=== PATIENT | female | born 1930 | race Caucasian/White ===

== ENCOUNTER 2018-02-20 17:19 | Inpatient (IN) ==
[2018-02-20 18:05] LABS: Basophils # 0.1 K/mm3 (0-0.2); Basophils % 0.7 % (0.1-2.0); Eosinophils # 0.1 K/mm3 (0.0-0.4); Eosinophils % 1.8 % (0.1-12.0); Hematocrit 39.4 % (37.0-47.0); Hemoglobin 12.4 g/dL (12.2-16.2); Lymphocytes # 1.9 K/mm3 (0.7-4.5); Lymphocytes % 30.4 K/mm3 (10-50); Mean Corpuscular HGB Conc 31.4 g/dL (31.8-35.4); Mean Corpuscular Hemoglobin 31.5 pg (27.0-31.2); Mean Corpuscular Volume 100.2 fl (81-99); Mean Platelet Volume 8.2 fl (7.4-10.4); Monocytes # 0.6 K/mm3 (0.1-1.0); Neutrophils # 3.6 K/mm3 (1.8-7.8); Neutrophils % 58.1 % (37.0-80.0); Platelet Count 202 K/mm3 (142-424); Red Blood Count 3.93 M/mm3 (4.20-5.40); Red Cell Distribution Width 15.1 % (11.5-17.5); White Blood Count 6.2 K/mm3 (4.8-10.8)
[2018-02-20 18:26] LABS: Albumin Level 3.4 gm/dL (3.4-5.0); Anion Gap 14.2 mEq/L (5-15); Bilirubin,Total 0.5 mg/dL (0.2-1.0); Calcium 8.5 mg/dL (8.5-10.1); Globulin 3.4 gm/dl (1.3-3.2); Potassium 5.2 mmoL/L (3.5-5.1); Total Protein,Serum 6.8 gm/dL (6.4-8.2)
--- NOTE | 2018-02-20 19:47 | Emergency Department Note ---
ED Disposition Clinical Impression: Dehydration Disposition: Home, Self-Care Condition on Discharge: Fair Instructions: DI for Diarrhea and Traveler's Diarrhea -- Adult, DI for Nausea -- Adult Additional Instructions: Patient has been encouraged to drink lots of fluids and she is able to get a stress will bring to the lab we will give her some containers to take home to collect those 2 specimens with Prescriptions: Ondansetron [Zofran 4mg ODT] 4 mg SL Q6HP PRN 5 Days #20 tab.rapdis PRN Reason: Nausea Referrals: Adrián Patel [Primary Care Provider] - Time of Disposition: 20:30 - Critical Care Critical Care Time: No Attestation: On 02/20/18, the high probability of a clinically significant, sudden or life threatening deterioration of the following system(s) required my full and direct attention, intervention and personal management. The time I documented below is in addition to time spent performing reported procedures but includes the following listed in this critical care notation. Medical Decision Making - Medical Records Medical records reviewed: Yes: I reviewed the patient's medical records. - [place] Inquiry Pt receiving controlled substance: No [place] was queried for this patient: No Vital Signs: 02/20/18 17:32 02/20/18 17:51 02/20/18 17:55 Temperature 97.4 F L Temperature Source Oral Pulse Rate [Right Brachial] 77 73 Respiratory Rate 18 20 Blood Pressure [Right Arm] 162/74 164/74 Blood Pressure Mean [Right Arm] 103 104 Blood Pressure Source [Right Arm] Automatic Cuff Blood Pressure Position [Right Arm] Sitting 02 Sat by Pulse Oximetry 90 L 98 98 Oxygen Delivery Method Room Air Nasal Cannula Nasal Cannula Oxygen Flow Rate (LPM) 2 2 02/20/18 19:20 Temperature Temperature Source Pulse Rate [Right Brachial] 76 Respiratory Rate 18 Blood Pressure [Right Arm] 178/74 Blood Pressure Mean [Right Arm] 108 Blood Pressure Source [Right Arm] Automatic Cuff Blood Pressure Position [Right Arm] Sitting 02 Sat by Pulse Oximetry 100 Oxygen Delivery Method Room Air Oxygen Flow Rate (LPM) - Lab Data Lab results reviewed: Yes: I reviewed the patient's lab results. Lab Results 02/20/18 17:45: WBC 6.2, RBC 3.93 L, Hgb 12.4, Hct 39.4, MCV 100.2 H, MCH 31.5 H , MCHC 31.4 L, RDW 15.1, Plt Count 202, MPV 8.2, Neut % (Auto) 58.1, Lymph % (Auto) 30.4, [place] % (Auto) 9.0, Eos % (Auto) 1.8, Baso % (Auto) 0.7, Neut # (Auto) 3.6, Lymph # (Auto) 1.9, [place] # (Auto) 0.6, Eos # (Auto) 0.1, Baso # (Auto) 0.1 02/20/18 17:45: Sodium 133 L, Potassium 5.2 H, Chloride 101, Carbon Dioxide 23, Anion Gap 14.2, BUN 33 H, Creatinine 1.41 H, Estimated Creat Clear 30, Estimated GFR 35 L, Est GFR ( Amer) 42 L, Glucose 93, Calcium 8.5, Total Bilirubin 0.5, AST 16, ALT 16, Alkaline Phosphatase 82, Total Protein 6.8, Albumin 3.4, Globulin 3.4 H, Albumin/Globulin Ratio 1.0 L Result diagrams: 02/20/18 17:45 02/20/18 17:45 Orders (Tests/Meds): ED MEDICATIONS Discontinued Medications Generic Name Dose Route Start Last Admin Trade Name Freq PRN Reason Stop Dose Admin Sodium Chloride 1,000 mls @ 999 mls/hr 02/20/18 18:00 02/20/18 18:00 Sod Chlor 0.9% 1000ml Bag IV 02/20/18 19:00 999 mls/hr .Q1H1M COMPA Administration ORDERS Category Date Time Status CT abdomen pelvis wo con Stat Cat Scan 02/20/18 19:44 Ordered Chest XR AP view [XR chest AP] Stat Exams 02/20/18 19:46 Ordered Amylase Stat Lab 02/20/18 17:45 Received CRP [C-Reactive Protein] Stat Lab 02/20/18 17:45 Received Diarrhea Panel, PCR Stat Lab 02/20/18 19:46 Ordered Erythrocyte Sedimentation Rate Stat Lab 02/20/18 17:45 Received Lipase Stat Lab 02/20/18 17:45 Received Strep Scrn Group A (Rapid) Stat Lab 02/20/18 19:50 Received UA [Urinalysis and Microscopic] Stat Lab 02/20/18 19:50 Ordered Nausea/Vomiting/Diarrhea HPI - General Chief complaint: Nausea/Vomiting/Diarrhea Stated complaint: Weakness, nauseated Time Seen by Provider: 02/20/18 19:39 Mode of Arrival: Ambulatory Limitations: No Limitations Description of Symptoms (Recalled from ER Triage Doc. by RN): Pt reports nausea and diarrhea x3 days, reports no vomitting. Pt reports generalzied weakness x3 days. - History of Present Illness HPI Narrative: Patient is an 87-year-old white female who was brought to the emergency room with complaints of nausea and diarrhea for approximately 3 days she has not had any vomiting with this and she has not been running any fevers she also complains of a sore throat and some cough is just generally weak. She does have a history of having had C. difficile infection to 3 years ago but has not had any recurrence. At the present time she is taking MiraLAX and Citrucel at night and according to the daughter that makes her have diarrhea stools all the time. MD complaint: nausea, vomiting, diarrhea, abdominal pain Onset (ago): day(s) Description of Vomiting: watery Description of Diarrhea: water Associated Abdominal Pain: No - Related Data Home Medications Medication Instructions Recorded Confirmed albuterol sulfate 90 mcg/actuation 2 puff INHALATION Q4H each 06/22/17 01/28/18 breath activated powder inhaler dexlansoprazole 60 mg 60 mg PO DAILY 06/22/17 01/28/18 capsule,biphase delayed release docusate sodium 250 mg capsule 250 mg PO DAILYP PRN 06/22/17 01/28/18 escitalopram 20 mg tablet 20 mg PO DAILY tab 06/22/17 01/28/18 furosemide 40 mg tablet 40 mg PO .every other day tab 06/22/17 01/28/18 ibuprofen 200 mg tablet 200 mg PO Q6H PRN tab 06/22/17 01/28/18 lisinopril 20 mg tablet 20 mg PO DAILY 06/22/17 01/28/18 loratadine 10 mg tablet 10 mg PO DAILY 06/22/17 01/28/18 lorazepam 1 mg tablet 1 mg PO TID 06/22/17 01/28/18 nitroglycerin 0.4 mg sublingual 0.4 mg SUBLINGUAL Q5M PRN 06/22/17 01/28/18 tablet ondansetron 4 mg disintegrating 4 mg PO Q6H PRN 06/22/17 01/28/18 tablet oxycodone-acetaminophen 7.5 mg-325 1 tab PO Q6H PRN tab 06/22/17 01/28/18 mg tablet sucralfate 1 gram tablet 1 g PO QID 06/22/17 01/28/18 Fluticasone/Vilanterol [Breo 1 each IH DAILY 07/07/17 01/28/18 Ellipta 100-25 Mcg INH] L.acidoph,Paracasei, B.lactis 1 each PO DAILY 07/10/17 01/28/18 [Probiotic] Previous Rx's Medication Instructions Recorded Ondansetron [Zofran 4mg ODT] 4 mg SL Q6HP PRN 5 Days #20 02/20/18 tab.rapdis Allergies Allergy/AdvReac Type Severity Reaction Status Date / Time levofloxacin [From Levaquin] Allergy Intermediate Hallucinati Verified 07/07/17 14:55 ng Tetanus Vaccines and Toxoid Allergy Mild Rash Verified 07/07/17 14:57 cephalexin [From KEFLEX] Allergy Unknown NA-NAUSEA/V Verified 07/06/17 17:40 OMITING ciprofloxacin [From CIPRO] Allergy Unknown NA-NAUSEA/V Verified 07/06/17 17:40 OMITING codeine [CODEINE] Allergy Unknown NA-NAUSEA/V Verified 07/06/17 17:40 OMITING fexofenadine [From TYLER] Allergy Unknown NA-NAUSEA/V Verified 07/06/17 17:40 OMITING morphine [MORPHINE] Allergy Unknown CONFUSION Verified 07/06/17 17:40 Penicillins [PENICILLINS] Allergy Unknown I-HIVES Verified 07/06/17 17:40 promethazine [From PHENERGAN] Allergy Unknown Verified 07/06/17 17:40 Sulfa (Sulfonamide Allergy Unknown NA-NAUSEA/V Verified 07/06/17 17:40 Antibiotics) OMITING [SULFA (SULFONAMIDE ANTIBIOTICS)] [facility] History I have reviewed the patient's past medical history: Yes Medical History: Reports:: Asthma, Atrial Fibrillation, Cancer, Cerebrovascular Accident, Hyperlipidemia, Hypertension, Internal Pacemaker, Myocardial Infarction Denies:: Diabetes Mellitus Type 1, Diabetes Mellitus Type 2 Other Medical History: Reports: Arthritis Laterality Cases: Left: Arthroscopy Shoulder, Bilateral: Arthroscopy Knee Other Surgeries: Yes: Hysterectomy-Partial, Pacemaker, Splenectomy, Other (broken back, cholecystectomy, shoulders) - Social History Smoking Status: Former smoker Alcohol Intake: never - Psychiatric History Expresses thoughts of harming self/others: None Suicide Plan Description: No Plan Family Hx:: Coronary Artery Disease ROS Obtained: Yes All systems reviewed & no additional complaints - Constitutional Constitutional: Reports system reviewed and no additional complaints, except as docu, Reports as per HPI - Cardiovascular Cardiovascular: Reports system reviewed and no additional complaints, except as docu, Reports as per HPI - Gastrointestinal Gastrointestingal: Reports: system reviewed and no additional complaints, except as docu, as per HPI Physical Exam - General General appearance: alert, lethargic - Head Head exam: atraumatic - Eye Eye exam: Present: normal appearance - ENT ENT exam: Present: mucous membranes dry - Neck Neck exam: Present: normal inspection - Chest Chest inspection: Present: normal inspection - Respiratory Respiratory exam: Present: normal lung sounds bilaterally - Cardiovascular Cardiovascular exam: Present: regular rate - Abdominal Exam Abdominal exam: Present: soft, normal bowel sounds - Neurological Exam Neurological exam: Present: alert, oriented X3
[2018-02-20 19:54] LABS: Microscopic, Urine URINE MICROSCOPIC (MICROSCOPIC)
[2018-02-20 20:08] LABS: Appearance,Urine CLEAR (Clear); Bilirubin,Urine Negative (Negative); Blood, Urine 1+ (Negative); Color,Urine STRAW (Yellow); Glucose,Urine (UA) Negative (Negative); Ketones,Urine Negative (Negative); Leukocyte Esterase,Urine Negative (Negative); Protein,Urine Negative (Negative); Specific Gravity, Urine <= 1.005 (1.005-1.030); Urobilinogen,Urine 0.2 EU/dl (0.2)
[2018-02-20 20:40] LABS: ABG Base Excess -6.5 mmol/L (-2.4-2.3); ABG HCO3 18.8 mmhg (22.0-26.0); ABG Oxygen Saturation 96 % (90-100); ABG PCO2 33.7 mmhg (35.0-45.0); ABG PH 7.37 mmol/L (7.35-7.45); ABG PO2 85.3 mmhg (80-100); ABG TCO2 19.9 mmhg (23-27)
[2018-02-20 20:41] LABS: Allen's Test Y; Oxygen 2 %
[2018-02-20 22:56] LABS: Bacteria,Urine Trace /lpf
[2018-02-21 05:23] LABS: Anion Gap 16.4 mEq/L (5-15); Calcium 8.2 mg/dL (8.5-10.1); Potassium 4.4 mmoL/L (3.5-5.1)
[2018-02-21 05:30] LABS: Basophils % 0.5 % (0.1-2.0); Eosinophils # 0.1 K/mm3 (0.0-0.4); Eosinophils % 0.9 % (0.1-12.0); Hematocrit 38.3 % (37.0-47.0); Hemoglobin 11.9 g/dL (12.2-16.2); Lymphocytes # 1.8 K/mm3 (0.7-4.5); Lymphocytes % 22.5 K/mm3 (10-50); Mean Corpuscular Hemoglobin 31.5 pg (27.0-31.2); Mean Corpuscular Volume 101.5 fl (81-99); Mean Platelet Volume 8.2 fl (7.4-10.4); Monocytes # 0.8 K/mm3 (0.1-1.0); Monocytes % 9.8 % (1.7-9.3); Neutrophils # 5.2 K/mm3 (1.8-7.8); Neutrophils % 66.3 % (37.0-80.0); Platelet Count 186 K/mm3 (142-424); Red Blood Count 3.78 M/mm3 (4.20-5.40); Red Cell Distribution Width 15.5 % (11.5-17.5); White Blood Count 7.8 K/mm3 (4.8-10.8)
--- NOTE | 2018-02-21 07:57 | Consult Report ---
*Admission Date: 02/20/18 *Chief complaint: NAUSEA *History of present illness: Patient is an 87 non-Hodgkin's lymphoma and had prior splenectomy. She has a history of coronary disease with previous myocardial infarction, valvular heart disease, pacemaker placement, atrial fibrillation. She does have a previous history of C. difficile colitis several years ago. She has had chronic diarrhea for several years. I had seen her and colonoscopy in September 2015 as well as upper endoscopy which were relatively unremarkable. Apparently she has had more significant diarrhea the past several days. She was brought to the emergency department with nausea and diarrhea. She underwent workup which included CT sc an of the abdomen and pelvis without any contrast whatsoever which revealed findings of possible fluid collection adjacent to the rectosigmoid region possibly consistent with diverticulitis. She was admitted for inpatient management. Patient's main complaint is pain and discomfort between her shou lder blades and in her neck area. Of note, patient has seen gastroenterology as an outpatient as recent as 5 days ago. Exact details of this evaluation are unclear at this time. Review of Systems - Review of Systems Review of systems:: unable to obtain [facility] History Medical History: Reports:: Asthma, Atrial Fibrillation, Cancer (lymphoma), Cerebrovascular Accident, Hyperlipidemia, Hypertension, Internal Pacemaker, Myocardial Infarction Denies:: Diabetes Mellitus Type 1, Diabetes Mellitus Type 2 Other Medical History: Reports: Arthritis Laterality Cases: Left: Arthroscopy Shoulder, Bilateral: Arthroscopy Knee Other Surgeries: Yes: Hysterectomy-Partial, Pacemaker, Splenectomy, Other (broken back, cholecystectomy, shoulders) Amputation: No Fractures: No - *Social History Educational Level: Completed Grade School Smoking Status: Never smoker Alcohol Intake: former Alcohol Intake Frequency:: other Occupational Status: retired - Psychiatric History Expresses thoughts of harming self/others: None Suicide Plan Description: No Plan *Family Hx:: Coronary Artery Disease Meds Home Medications Medication Instructions Recorded Confirmed Type dexlansoprazole 60 mg 60 mg PO DAILY 06/22/17 02/20/18 History capsule,biphase delayed release escitalopram 20 mg tablet 40 mg PO DAILY tab 06/22/17 02/20/18 History furosemide 40 mg tablet 40 mg PO .every other day tab 06/22/17 02/20/18 History lisinopril 20 mg tablet 10 mg PO DAILY 06/22/17 02/20/18 History loratadine 10 mg tablet 10 mg PO DAILY 06/22/17 02/20/18 History lorazepam 1 mg tablet 1 mg PO TID 06/22/17 02/20/18 History nitroglycerin 0.4 mg sublingual 0.4 mg SUBLINGUAL Q5M PRN 06/22/17 02/20/18 History tablet oxycodone-acetaminophen 7.5 mg-325 1 tab PO Q6H PRN tab 06/22/17 02/20/18 History mg tablet sucralfate 1 gram tablet 1 g PO QID 06/22/17 02/20/18 History Allergies Allergy/AdvReac Type Severity Reaction Status Date / Time levofloxacin [From Levaquin] Allergy Intermediate Hallucinati Verified 02/20/18 23:06 ng Tetanus Vaccines and Toxoid Allergy Mild Rash Verified 02/20/18 23:06 cephalexin [From KEFLEX] Allergy Unknown NA-NAUSEA/V Verified 02/20/18 23:06 OMITING ciprofloxacin [From CIPRO] Allergy Unknown NA-NAUSEA/V Verified 02/20/18 23:06 OMITING codeine [CODEINE] Allergy Unknown NA-NAUSEA/V Verified 02/20/18 23:06 OMITING fexofenadine [From TYLER] Allergy Unknown NA-NAUSEA/V Verified 02/20/18 23:06 OMITING morphine [MORPHINE] Allergy Unknown CONFUSION Verified 02/20/18 23:06 Penicillins [PENICILLINS] Allergy Unknown I-HIVES Verified 02/20/18 23:06 promethazine [From PHENERGAN] Allergy Unknown Verified 02/20/18 23:06 Sulfa (Sulfonamide Allergy Unknown NA-NAUSEA/V Verified 02/20/18 23:06 Antibiotics) OMITING [SULFA (SULFONAMIDE ANTIBIOTICS)] Exam Vital signs and Labs for Last 24 Hours: Temp Pulse Resp BP Pulse Ox 97.7 F 86 20 148/83 95 02/21/18 04:02 02/21/18 04:02 02/21/18 04:02 02/21/18 04:02 02/21/18 04:02 Laboratory Results - last 24 hr 02/20/18 17:45: WBC 6.2, RBC 3.93 L, Hgb 12.4, Hct 39.4, MCV 100.2 H, MCH 31.5 H , MCHC 31.4 L, RDW 15.1, Plt Count 202, MPV 8.2, Neut % (Auto) 58.1, Lymph % (Auto) 30.4, [place] % (Auto) 9.0, Eos % (Auto) 1.8, Baso % (Auto) 0.7, Neut # (Auto) 3.6, Lymph # (Auto) 1.9, [place] # (Auto) 0.6, Eos # (Auto) 0.1, Baso # (Auto) 0.1 02/20/18 17:45: Sodium 133 L, Potassium 5.2 H, Chloride 101, Carbon Dioxide 23, Anion Gap 14.2, BUN 33 H, Creatinine 1.41 H, Estimated Creat Clear 30, Estimated GFR 35 L, Est GFR ( Amer) 42 L, Glucose 93, Calcium 8.5, Total Bilirubin 0.5, AST 16, ALT 16, Alkaline Phosphatase 82, Total Protein 6.8, Albumin 3.4, Globulin 3.4 H, Albumin/Globulin Ratio 1.0 L 02/20/18 17:45: C-Reactive Protein 2.0 H, Amylase 39, Lipase 84 02/20/18 17:45: ESR 3 02/20/18 19:50: Urine Color Straw, Urine Appearance Clear, Urine pH 6.0, Ur Specific [place] <= 1.005, Urine Protein Negative, Urine Glucose (UA) Negative, Urine Ketones Negative, Urine Blood 1+, Urine Nitrate Negative, Urine Bilirubin Negative, Urine Urobilinogen 0.2, Ur Leukocyte Esterase Negative, Urine RBC None, Urine WBC None, Ur Squamous Epith Cells None, Urine Bacteria Trace 02/20/18 19:50: Group A Strep Rapid Negative 02/20/18 20:39: Specimen Source R/r, O2 % 2, ABG pH 7.37, ABG pCO2 33.7 L, ABG pO2 85.3, ABG HCO3 18.8 L, ABG Total CO2 19.9 L, ABG O2 Saturation 96, ABG Base Excess -6.5 L, Ramon Test Y 02/20/18 21:35: Lactate 1.7 02/21/18 01:45: Troponin I 0.06 02/21/18 04:53: Troponin I 0.05 02/21/18 04:53: WBC 7.8 D, RBC 3.78 L, Hgb 11.9 L, Hct 38.3, MCV 101.5 H, MCH 31.5 H, MCHC 31.0 L, RDW 15.5, Plt Count 186, MPV 8.2, Neut % (Auto) 66.3, Lymph % (Auto) 22.5, [place] % (Auto) 9.8 H, Eos % (Auto) 0.9, Baso % (Auto) 0.5, Neut # (Auto) 5.2, Lymph # (Auto) 1.8, [place] # (Auto) 0.8, Eos # (Auto) 0.1, Baso # (Auto) 0.0 02/21/18 04:53: Sodium 141, Potassium 4.4, Chloride 104, Carbon Dioxide 25, Anion Gap 16.4 H, BUN 30 H, Creatinine 1.17 H, Estimated Creat Clear 37, Estim ated GFR 44 L, Est GFR ( Amer) 53 L D, Glucose 86, Calcium 8.2 L I & O for Last 24 hours: Intake & Output 02/18/18 02/19/18 02/20/18 02/21/18 11:59 11:59 11:59 11:59 Intake Total 1725 / 1725 Output Total 1000 / 1000 Balance 725 / 725 Weight 160 lb 1 oz - Constitutional no acute distress - *Routine HEENT Exam Head: Present: normocephalic - *Routine Neck Exam Present: supple - *Routine Respiratory Exam Present: CTA bilaterally - *Routine Cardiovascular Exam Present: Normal S1, Normal S2 - *Routine Abdominal Exam Present: soft Comments: Her abdomen is soft. There is no appreciable tenderness. She has some mild subjective tenderness. Results - Labs 02/21/18 04:53 02/21/18 04:53 Laboratory Results - last 24 hr 02/20/18 17:45: WBC 6.2, RBC 3.93 L, Hgb 12.4, Hct 39.4, MCV 100.2 H, MCH 31.5 H , MCHC 31.4 L, RDW 15.1, Plt Count 202, MPV 8.2, Neut % (Auto) 58.1, Lymph % (Auto) 30.4, [place] % (Auto) 9.0, Eos % (Auto) 1.8, Baso % (Auto) 0.7, Neut # (Auto) 3.6, Lymph # (Auto) 1.9, [place] # (Auto) 0.6, Eos # (Auto) 0.1, Baso # (Auto) 0.1 02/20/18 17:45: Sodium 133 L, Potassium 5.2 H, Chloride 101, Carbon Dioxide 23, Anion Gap 14.2, BUN 33 H, Creatinine 1.41 H, Estimated Creat Clear 30, Estimated GFR 35 L, Est GFR ( Amer) 42 L, Glucose 93, Calcium 8.5, Total Bilirubin 0.5, AST 16, ALT 16, Alkaline Phosphatase 82, Total Protein 6.8, Albumin 3.4, Globulin 3.4 H, Albumin/Globulin Ratio 1.0 L 02/20/18 17:45: C-Reactive Protein 2.0 H, Amylase 39, Lipase 84 02/20/18 17:45: ESR 3 02/20/18 19:50: Urine Color Straw, Urine Appearance Clear, Urine pH 6.0, Ur Specific [place] <= 1.005, Urine Protein Negative, Urine Glucose (UA) Negative, Urine Ketones Negative, Urine Blood 1+, Urine Nitrate Negative, Urine Bilirubin Negative, Urine Urobilinogen 0.2, Ur Leukocyte Esterase Negative, Urine RBC None, Urine WBC None, Ur Squamous Epith Cells None, Urine Bacteria Trace 02/20/18 19:50: Group A Strep Rapid Negative 02/20/18 20:39: Specimen Source R/r, O2 % 2, ABG pH 7.37, ABG pCO2 33.7 L, ABG pO2 85.3, ABG HCO3 18.8 L, ABG Total CO2 19.9 L, ABG O2 Saturation 96, ABG Base Excess -6.5 L, Ramon Test Y 02/20/18 21:35: Lactate 1.7 02/21/18 01:45: Troponin I 0.06 02/21/18 04:53: Troponin I 0.05 02/21/18 04:53: WBC 7.8 D, RBC 3.78 L, Hgb 11.9 L, Hct 38.3, MCV 101.5 H, MCH 31.5 H, MCHC 31.0 L, RDW 15.5, Plt Count 186, MPV 8.2, Neut % (Auto) 66.3, Lymph % (Auto) 22.5, [place] % (Auto) 9.8 H, Eos % (Auto) 0.9, Baso % (Auto) 0.5, Neut # (Auto) 5.2, Lymph # (Auto) 1.8, [place] # (Auto) 0.8, Eos # (Auto) 0.1, Baso # (Auto) 0.0 02/21/18 04:53: Sodium 141, Potassium 4.4, Chloride 104, Carbon Dioxide 25, Anion Gap 16.4 H, BUN 30 H, Creatinine 1.17 H, Estimated Creat Clear 37, Estimated GFR 44 L, Est GFR ( Amer) 53 L D, Glucose 86, Calcium 8.2 L Assessment and Plan - Assessment and plan all Dx Assessment and Plan for all problems:: No surgical intervention at this time. Continue antibiotics for now. I will go ahead and start a diet.
--- NOTE | 2018-02-21 08:04 | History & Physical Report ---
*Admission Date: 02/20/18 *Chief complaint: Diarrhea *History of present illness: 87-year-old female brought to the emergency department yesterday evening by family due to nausea and diarrhea. According to the ER notes symptoms had been present for about 3 days and patient does confirm this. Patient takes multiple laxatives. She sees local GI and had seen him as recently as February 15. Workup in the emergency department with significant only for right-sided rectosigmoid diverticulitis with possible abscess per [facility] report. Patient's white count was normal. She denies fevers or chills. She has been having nausea and diarrhea and after admission developed vomiting. This morning patient's primary complaint is multiple arthralgias. She is a very poor historian and apparently her daughter provided most of the history in the emergency department. [facility] History I have reviewed the patient's past medical history: Yes Medical History: Reports:: Asthma, Atrial Fibrillation, Cancer (lymphoma), Cerebrovascular Accident, Hyperlipidemia, Hypertension, Internal Pacemaker, Myocardial Infarction Denies:: Diabetes Mellitus Type 1, Diabetes Mellitus Type 2 Other Medical History: Reports: Arthritis Laterality Cases: Left: Arthroscopy Shoulder, Bilateral: Arthroscopy Knee Other Surgeries: Yes: Hysterectomy-Partial, Pacemaker, Splenectomy, Other (broken back, cholecystectomy, shoulders) Amputation: No Fractures: No - *Social History Educational Level: Completed Grade School Smoking Status: Never smoker Alcohol Intake: former Alcohol Intake Frequency:: other Occupational Status: retired - Psychiatric History Expresses thoughts of harming self/others: None Suicide Plan Description: No Plan *Family Hx:: Coronary Artery Disease Review of Systems - Constitutional Reports lack of energy, Denies night sweats - Eyes Reports loss of vision - ENT Reports abnormal hearing - *Cardiovascular Denies chest pain, Denies chest pain at rest - *Respiratory Denies cough, Denies shortness of breath - *Gastrointestinal Reports abdominal pain - *Musculoskeletal Reports joint pain Meds Home Medications Medication Instructions Recorded Confirmed Type dexlansoprazole 60 mg 60 mg PO DAILY 06/22/17 02/20/18 History capsule,biphase delayed release escitalopram 20 mg tablet 40 mg PO DAILY tab 06/22/17 02/20/18 History furosemide 40 mg tablet 40 mg PO .every other day tab 06/22/17 02/20/18 History lisinopril 20 mg tablet 10 mg PO DAILY 06/22/17 02/20/18 History loratadine 10 mg tablet 10 mg PO DAILY 06/22/17 02/20/18 History lorazepam 1 mg tablet 1 mg PO TID 06/22/17 02/20/18 History nitroglycerin 0.4 mg sublingual 0.4 mg SUBLINGUAL Q5M PRN 06/22/17 02/20/18 History tablet oxycodone-acetaminophen 7.5 mg-325 1 tab PO Q6H PRN tab 06/22/17 02/20/18 History mg tablet sucralfate 1 gram tablet 1 g PO QID 06/22/17 02/20/18 History Allergies Allergy/AdvReac Type Severity Reaction Status Date / Time levofloxacin [From Levaquin] Allergy Intermediate Hallucinati Verified 02/20/18 23:06 ng Tetanus Vaccines and Toxoid Allergy Mild Rash Verified 02/20/18 23:06 cephalexin [From KEFLEX] Allergy Unknown NA-NAUSEA/V Verified 02/20/18 23:06 OMITING ciprofloxacin [From CIPRO] Allergy Unknown NA-NAUSEA/V Verified 02/20/18 23:06 OMITING codeine [CODEINE] Allergy Unknown NA-NAUSEA/V Verified 02/20/18 23:06 OMITING fexofenadine [From TYLER] Allergy Unknown NA-NAUSEA/V Verified 02/20/18 23:06 OMITING morphine [MORPHINE] Allergy Unknown CONFUSION Verified 02/20/18 23:06 Penicillins [PENICILLINS] Allergy Unknown I-HIVES Verified 02/20/18 23:06 promethazine [From PHENERGAN] Allergy Unknown Verified 02/20/18 23:06 Sulfa (Sulfonamide Allergy Unknown NA-NAUSEA/V Verified 02/20/18 23:06 Antibiotics) OMITING [SULFA (SULFONAMIDE ANTIBIOTICS)] Exam Vital signs and Labs for Last 24 Hours: Temp Pulse Resp BP Pulse Ox 97.7 F 86 20 148/83 95 02/21/18 04:02 02/21/18 04:02 02/21/18 04:02 02/21/18 04:02 02/21/18 04:02 Laboratory Results - last 24 hr 02/20/18 17:45: WBC 6.2, RBC 3.93 L, Hgb 12.4, Hct 39.4, MCV 100.2 H, MCH 31.5 H , MCHC 31.4 L, RDW 15.1, Plt Count 202, MPV 8.2, Neut % (Auto) 58.1, Lymph % (Auto) 30.4, [place] % (Auto) 9.0, Eos % (Auto) 1.8, Baso % (Auto) 0.7, Neut # (Auto) 3.6, Lymph # (Auto) 1.9, [place] # (Auto) 0.6, Eos # (Auto) 0.1, Baso # (Auto) 0.1 02/20/18 17:45: Sodium 133 L, Potassium 5.2 H, Chloride 101, Carbon Dioxide 23, Anion Gap 14.2, BUN 33 H, Creatinine 1.41 H, Estimated Creat Clear 30, Estimated GFR 35 L, Est GFR ( Amer) 42 L, Glucose 93, Calcium 8.5, Total Bilirubin 0.5, AST 16, ALT 16, Alkaline Phosphatase 82, Total Protein 6.8, Albumin 3.4, Globulin 3.4 H, Albumin/Globulin Ratio 1.0 L 02/20/18 17:45: C-Reactive Protein 2.0 H, Amylase 39, Lipase 84 02/20/18 17:45: ESR 3 02/20/18 19:50: Urine Color Straw, Urine Appearance Clear, Urine pH 6.0, Ur Specific [place] <= 1.005, Urine Protein Negative, Urine Glucose (UA) Negative, Urine Ketones Negative, Urine Blood 1+, Urine Nitrate Negative, Urine Bilirubin Negative, Urine Urobilinogen 0.2, Ur Leukocyte Esterase Negative, Urine RBC None, Urine WBC None, Ur Squamous Epith Cells None, Urine Bacteria Trace 02/20/18 19:50: Group A Strep Rapid Negative 02/20/18 20:39: Specimen Source R/r, O2 % 2, ABG pH 7.37, ABG pCO2 33.7 L, ABG pO2 85.3, ABG HCO3 18.8 L, ABG Total CO2 19.9 L, ABG O2 Saturation 96, ABG Base Excess -6.5 L, Ramon Test Y 02/20/18 21:35: Lactate 1.7 02/21/18 01:45: Troponin I 0.06 02/21/18 04:53: Troponin I 0.05 02/21/18 04:53: WBC 7.8 D, RBC 3.78 L, Hgb 11.9 L, Hct 38.3, MCV 101.5 H, MCH 31.5 H, MCHC 31.0 L, RDW 15.5, Plt Count 186, MPV 8.2, Neut % (Auto) 66.3, Lymph % (Auto) 22.5, [place] % (Auto) 9.8 H, Eos % (Auto) 0.9, Baso % (Auto) 0.5, Neut # (Auto) 5.2, Lymph # (Auto) 1.8, [place] # (Auto) 0.8, Eos # (Auto) 0.1, Baso # (Auto) 0.0 02/21/18 04:53: Sodium 141, Potassium 4.4, Chloride 104, Carbon Dioxide 25, Anion Gap 16.4 H, BUN 30 H, Creatinine 1.17 H, Estimated Creat Clear 37, Estimated GFR 44 L, Est GFR ( Amer) 53 L D, Glucose 86, Calcium 8.2 L I & O for Last 24 hours: Intake & Output 02/18/18 02/19/18 02/20/18 02/21/18 11:59 11:59 11:59 11:59 Intake Total 1725 / 1725 Output Total 1000 / 1000 Balance 725 / 725 Weight 160 lb 1 oz Narrative: Patient is sitting up on the side of the bed. ENT exam is grossly normal. Neck is without lymphadenopathy. Lungs are clear to auscultation. Heart has a regular rate and rhythm. Abdomen is soft with right lower quadrant tenderness with deep palpation. There is no rebound or guarding. Bowel sounds are present. Extremities are warm to the touch and there is trace pedal edema. Assessment and Plan (1) Diverticulitis Current visit: Yes Status: Acute Category: Medical Code(s): K57.92 - Diverticulitis of intestine, part unspecified, without perforation or abscess without bleeding - Assessment and plan all Dx Assessment and Plan for all problems:: 1. Change antibiotics to Invanz due to Levaquin allergy 2. Start patient on home medications including Percocet for pain 3. Monitor symptomatology over the next 24 hours. 4. Surgical consult, Dr. Miranda is familiar with the patient and performed colonoscopy approximately 2 years ago. Await official CT scan report
--- NOTE | 2018-02-21 10:42 | Pharmacy Consult Notes ---
[facility] Pharmacy VTE Monitoring - Patient Demographics Admission date: 02/20/18 Report Date: 02/21/18 Time: 10:41 Allergies/Adverse Reactions: Patient Allergies levofloxacin [From Levaquin] Allergy (Intermediate, Verified 02/20/18 23:06) Hallucinating Tetanus Vaccines and Toxoid Allergy (Mild, Verified 02/20/18 23:06) Rash cephalexin [From KEFLEX] Allergy (Unknown, Verified 02/20/18 23:06) NA-NAUSEA/VOMITING ciprofloxacin [From CIPRO] Allergy (Unknown, Verified 02/20/18 23:06) NA-NAUSEA/VOMITING codeine [CODEINE] Allergy (Unknown, Verified 02/20/18 23:06) NA-NAUSEA/VOMITING fexofenadine [From TYLER] Allergy (Unknown, Verified 02/20/18 23:06) NA-NAUSEA/VOMITING morphine [MORPHINE] Allergy (Unknown, Verified 02/20/18 23:06) CONFUSION Penicillins [PENICILLINS] Allergy (Unknown, Verified 02/20/18 23:06) I-HIVES promethazine [From PHENERGAN] Allergy (Unknown, Verified 02/20/18 23:06) Sulfa (Sulfonamide Antibiotics) [SULFA (SULFONAMIDE ANTIBIOTICS)] Allergy (Unknown, Verified 02/20/18 23:06) NA-NAUSEA/VOMITING Height: 1.61 m Weight: 72.603 kg Patient Problems: Current Active Problems Dehydration (Acute) Diverticulitis (Acute) - VTE Risk Labs: VTE Related Lab Results Hgb 11.9 g/dL (12.2-16.2) L 02/21/18 04:53 Hct 38.3 % (37.0-47.0) 02/21/18 04:53 Plt Count 186 K/mm3 (142-424) 02/21/18 04:53 BUN 30 mg/dL (7-18) H 02/21/18 04:53 Creatinine 1.17 mg/dL (0.55-1.02) H 02/21/18 04:53 Estimated Creat Clear 37 mL/min (0-300) 02/21/18 04:53 VTE Score: 6 VTE Risk Level: Moderate Risk - Prophylaxis VTE Prophylaxis Ordered?: Yes Types of VTE Prophylaxis: TEDS Knee High Location of Applied Device: Bilateral Lower Extremeties - VTE Diagnosis Confirmed Treatment or plan recommended: Continue Current Treatment
--- NOTE | 2018-02-22 08:00 | Progress Note ---
Subjective Narrative: Patient's only complaint is some nausea. Denies abdominal pain. Exam Vital signs and Labs for Last 24 Hours: Temp Pulse Resp BP Pulse Ox 98.0 F 80 18 184/73 98 02/22/18 03:37 02/22/18 04:00 02/22/18 03:37 02/22/18 03:37 02/22/18 03:37 I & O for Last 24 hours: Intake & Output 02/19/18 02/20/18 02/21/18 02/22/18 11:59 11:59 11:59 11:59 Intake Total 1725 / 1725 3459 / 3459 Output Total 1600 / 1600 3150 / 3150 Balance 125 / 125 309 / 309 Weight 160 lb 1 oz 164 lb 1 oz Microbiology Reports for the Last 24 Hours: Microbiology 02/20/18 19:50 Throat Group A Streptococcus Screen (RYAN) - Final Negative for Group A Streptococcus. 02/20/18 21:33 Blood Blood Culture - Preliminary 02/20/18 21:33 Blood Blood Culture - Preliminary - *Routine Abdominal Exam Present: soft. Absent: tenderness Progress Note: A&P (1) Diverticulitis Status: Acute Current Visit: Yes Assessment and Plan for All Diagnoses:: No additional surgical relations at this time.
--- NOTE | 2018-02-22 08:07 | Progress Note ---
Internal Medicine - PN: Subj *Date: 02/22/18 *Time: 08:05 Interval history: Patient felt fairly well overnight except some mild nausea. Was able to tolerate gastelum and toast for breakfast this morning without vomiting. She has had no fever. Exam Vital signs and Labs for Last 24 Hours: Temp Pulse Resp BP Pulse Ox 98.0 F 80 18 184/73 98 02/22/18 03:37 02/22/18 04:00 02/22/18 03:37 02/22/18 03:37 02/22/18 03:37 I & O for Last 24 hours: Intake & Output 02/19/18 02/20/18 02/21/18 02/22/18 11:59 11:59 11:59 11:59 Intake Total 1725 / 1725 3459 / 3459 Output Total 1600 / 1600 3150 / 3150 Balance 125 / 125 309 / 309 Weight 160 lb 1 oz 164 lb 1 oz Microbiology Reports for the Last 24 Hours: Microbiology 02/20/18 21:33 Blood Blood Culture - Preliminary 02/20/18 21:33 Blood Blood Culture - Preliminary 02/20/18 19:50 Throat Group A Streptococcus Screen (RYAN) - Final Negative for Group A Streptococcus. Narrative: Patient is alert. Pleasant. No JVD. ENT exam otherwise clear. Anterior lung samuel clear. Heart rate regular. Abdomen soft and nontender. Vigorous palpation causes minimal tenderness in the left lower quadrant but very minimal. No CVA pain. No peripheral edema. Assessment and Plan (1) Diverticulitis Current visit: Yes Status: Acute Category: Medical Code(s): K57.92 - Diverticulitis of intestine, part unspecified, without perforation or abscess without bleeding - Assessment and plan all Dx Assessment and Plan for all problems:: Overall patient seems to be clinically improving. White count improving. Exam improving. Continue antibiotics for another 24 hours. Increase lisinopril because of high blood pressure in hospital, of note creatinine improved yesterday. Check labs tomorrow..
[2018-02-23 06:45] LABS: Basophils # 0.1 K/mm3 (0-0.2); Basophils % 0.9 % (0.1-2.0); Eosinophils # 0.1 K/mm3 (0.0-0.4); Hematocrit 37.4 % (37.0-47.0); Hemoglobin 11.7 g/dL (12.2-16.2); Lymphocytes # 2.3 K/mm3 (0.7-4.5); Lymphocytes % 33.2 K/mm3 (10-50); Mean Corpuscular HGB Conc 31.4 g/dL (31.8-35.4); Mean Corpuscular Hemoglobin 31.6 pg (27.0-31.2); Mean Corpuscular Volume 100.8 fl (81-99); Mean Platelet Volume 8.3 fl (7.4-10.4); Monocytes # 0.8 K/mm3 (0.1-1.0); Monocytes % 12.3 % (1.7-9.3); Neutrophils # 3.5 K/mm3 (1.8-7.8); Neutrophils % 51.6 % (37.0-80.0); Platelet Count 201 K/mm3 (142-424); Red Blood Count 3.71 M/mm3 (4.20-5.40); Red Cell Distribution Width 16.2 % (11.5-17.5); White Blood Count 6.8 K/mm3 (4.8-10.8)
[2018-02-23 06:57] LABS: Anion Gap 11.6 mEq/L (5-15); Bilirubin,Total 0.7 mg/dL (0.2-1.0); Globulin 2.9 gm/dl (1.3-3.2); Potassium 3.6 mmoL/L (3.5-5.1); Total Protein,Serum 5.9 gm/dL (6.4-8.2)
--- NOTE | 2018-02-23 06:58 | Progress Note ---
Subjective Patient reports: feels better Narrative: Patient states that she feels better. Exam Vital signs and Labs for Last 24 Hours: Temp Pulse Resp BP Pulse Ox 98.5 F 70 17 172/83 94 L 02/23/18 03:51 02/23/18 04:00 02/23/18 03:51 02/23/18 03:51 02/23/18 03:51 Laboratory Results - last 24 hr 02/23/18 06:23: WBC 6.8, RBC 3.71 L, Hgb 11.7 L, Hct 37.4, MCV 100.8 H, MCH 31.6 H, MCHC 31.4 L, RDW 16.2, Plt Count 201, MPV 8.3, Neut % (Auto) 51.6, Lymph % (Auto) 33.2, [place] % (Auto) 12.3 H, Eos % (Auto) 2.0, Baso % (Auto) 0.9, Neut # (Auto) 3.5, Lymph # (Auto) 2.3, [place] # (Auto) 0.8, Eos # (Auto) 0.1, Baso # (Auto) 0.1 I & O for Last 24 hours: Intake & Output 02/20/18 02/21/18 02/22/18 02/23/18 11:59 11:59 11:59 11:59 Intake Total 1725 / 1725 3559 / 3559 2714 / 2714 Output Total 1600 / 1600 3150 / 3150 900 / 900 Balance 125 / 125 409 / 409 1814 / 1814 Weight 160 lb 1 oz 164 lb 1 oz 168 lb 2 oz Microbiology Reports for the Last 24 Hours: Microbiology 02/20/18 21:33 Blood Blood Culture - Preliminary 02/20/18 21:33 Blood Blood Culture - Preliminary 02/20/18 19:50 Throat Group A Streptococcus Screen (RYAN) - Final Negative for Group A Streptococcus. - *Routine Abdominal Exam Present: soft Comments: Min subjective tenderness right lower abdomen without guarding or rebound. Progress Note: A&P (1) Diverticulitis Status: Acute Current Visit: Yes Assessment and Plan for All Diagnoses:: Possible discharge today.
--- NOTE | 2018-02-23 09:56 | Swing Bed Reports ---
Discharge/Transfer - Discharge Disposition: [facility] Swing Bed Condition: Good - Plan of Care Resident has been informed of condition and prognosis?: Yes Mobility Status: ambulatory with assistance Goal of treatment:: complete IV abx due to allergies adn inability to take PO Rehab Potential: Good I concur with the most recent H & P: Yes Date of most recent H & P: 02/21/18 Certification: I have reviewed and agree with this resident's plan of care. I certify that post-hospital penitentiary facility services are required to be given on an inpatient basis because of the need for penitentiary care on a continuing basis for the condition(s) for which he/she is receiving inpatient hospital ser vices prior to admission to swing bed. I also certify that the resident meets existing SNF level of care definition.
--- NOTE | 2018-02-23 10:03 | Swing Bed Reports ---
*Admission Date: 02/20/18 *Chief complaint: Acute abdomen, positive blood cultures *History of present illness: Patient is an 87 non-Hodgkin's lymphoma and had prior splenectomy. She has a history of coronary disease with previous myocardial infarction, valvular heart disease, pacemaker placement, atrial fibrillation. She does have a previous history of C. difficile colitis several years ago. She has had chronic diarrhea for several years. I had seen her and colonoscopy in September 2015 as well as upper endoscopy which were relatively unremarkable. Apparently she has had more significant diarrhea the past several days. She was brought to the emergency department with nausea and diarrhea. She underwent workup which included CT scan of the abdomen and pelvis without any contrast whatsoever which revealed findings of possible fluid collection adjacent to the rectosigmoid region possibly consistent with diverticulitis. She was admitted for inpatient management. Patient's main complaint is pain and discomfort between her shoulder blades and in her neck area. Of note, patient has seen gastroe nterology as an outpatient as recent as 5 days ago. Exact details of this evaluation are unclear at this time. Hospital Course Hospital Course: Ms. Patel was admitted with acute abdominal pain, nausea. Assessed by surgery after CT scan of abdomen showed concern for possible diverticulitis versus small peripheral with walled off collection. Responded well to antibiotics with ertapenem and Flagyl. Surgery felt patient's abdomen did not require surgical intervention, recommended continuing medical management. Patient's symptoms significantly improved over the duration of her hospitalization. Found to have blood cultures for Streptococcus. Repeat blood cultures pending. Due to patient's numerous antibiotic allergies, unable to transition to oral therapy for duration of treatment. Plan to transfer and hemodynamically stable status to swing bed for completion of antibiotics for acute abdomen and positive blood culture treatment. Exam Vital signs and Labs for Last 24 Hours: Temp Pulse Resp BP Pulse Ox 98.3 F 84 16 180/90 93 L 02/23/18 07:43 02/23/18 07:43 02/23/18 07:43 02/23/18 07:43 02/23/18 07:43 Laboratory Results - last 24 hr 02/23/18 06:23: WBC 6.8, RBC 3.71 L, Hgb 11.7 L, Hct 37.4, MCV 100.8 H, MCH 31.6 H, MCHC 31.4 L, RDW 16.2, Plt Count 201, MPV 8.3, Neut % (Auto) 51.6, Lymph % (Auto) 33.2, [place] % (Auto) 12.3 H, Eos % (Auto) 2.0, Baso % (Auto) 0.9, Neut # (Auto) 3.5, Lymph # (Auto) 2.3, [place] # (Auto) 0.8, Eos # (Auto) 0.1, Baso # (Auto) 0.1 02/23/18 06:23: Sodium 141, Potassium 3.6, Chloride 107, Carbon Dioxide 26, Anion Gap 11.6, BUN 16 D, Creatinine 0.89 D, Estimated Creat Clear 46, Estimated GFR 60, Est GFR ( Amer) 72 D, Glucose 101, Calcium 8.0 L, Total Bilirubin 0.7, AST 17, ALT 14, Alkaline Phosphatase 70, Total Protein 5.9 L, Albumin 3.0 L, Globulin 2.9, Albumin/Globulin Ratio 1.0 L I & O for Last 24 hours: Intake & Output 02/20/18 02/21/18 02/22/18 02/23/18 23:59 23:59 23:59 23:59 Intake Total 1100 / 1100 1930 / 1930 3932 / 3932 1396 / 1396 Output Total 4450 / 4450 900 / 900 701 / 701 Balance 1100 / 1100 -2520 / -2520 3032 / 3032 695 / 695 Weight 72.773 kg 72.603 kg 74.417 kg 76.26 kg Microbiology Reports for the Last 24 Hours: Microbiology 02/20/18 21:33 Blood Blood Culture - Preliminary Gram Positive Cocci Gram Positive Bacilli 02/20/18 21:33 Blood Blood Culture - Preliminary Gram Positive Cocci Gram Positive Bacilli 02/20/18 19:50 Throat Group A Streptococcus Screen (RYAN) - Final Negative for Group A Streptococcus. - *Routine HEENT Exam Head: Present: normocephalic, atraumatic Eye: Present: EOMI, PERRL ENT: Present: mucous membranes moist - *Routine Neck Exam Present: supple. Absent: lymphadenopathy, thyromegaly - *Routine Respiratory Exam Present: CTA bilaterally. Absent: prolonged expiratory phase, wheezes, crackles - *Routine Cardiovascular Exam Present: RRR, Normal S1. Absent: murmur - *Routine Abdominal Exam Present: soft, normoactive bowel sounds, tenderness (Tenderness with interval improvement) - *Routine Rectal Exam Patient deferred: visual exam - *Routine Exam Patient deferred: external exam - *Routine Extremities Exam Absent: cyanosis, clubbing, edema - *Routine Skin Exam Present: intact. Absent: cyanosis - *Routine Neurological Exam Present: alert Results Labs on day of discharge: Labs from last 24 hours 02/23/18 02/23/18 06:23 06:23 WBC 6.8 RBC 3.71 L Hgb 11.7 L Hct 37.4 MCV 100.8 H MCH 31.6 H MCHC 31.4 L RDW 16.2 Plt Count 201 MPV 8.3 Neut % (Auto) 51.6 Lymph % (Auto) 33.2 [place] % (Auto) 12.3 H Eos % (Auto) 2.0 Baso % (Auto) 0.9 Neut # (Auto) 3.5 Lymph # (Auto) 2.3 [place] # (Auto) 0.8 Eos # (Auto) 0.1 Baso # (Auto) 0.1 Sodium 141 Potassium 3.6 Chloride 107 Carbon Dioxide 26 Anion Gap 11.6 BUN 16 D Creatinine 0.89 D Estimated Creat Clear 46 Estimated GFR 60 Est GFR ( Amer) 72 D Glucose 101 Calcium 8.0 L Total Bilirubin 0.7 AST 17 ALT 14 Alkaline Phosphatase 70 Total Protein 5.9 L Albumin 3.0 L Globulin 2.9 Albumin/Globulin Ratio 1.0 L Preliminary micro results at discharge 02/20/18 21:33 Blood Culture - Preliminary Blood Gram Positive Cocci Gram Positive Bacilli 02/20/18 21:33 Blood Culture - Preliminary Blood Gram Positive Cocci Gram Positive Bacilli DS: Diagnosis - Discharge Diagnosis (1) Diverticulitis Status: Acute Problem details: Intervally improved during admission. Continue antibiotics. Due to antibiotic allergies need to continue IV ertapenem. Transition to oral Flagyl. Unable to tolerate transition to Levaquin due to allergy. Continue course of treatment for 7-10 days from initiation of an tibiotics. transitioned to swing for completion of treatment. (2) Bacteremia Status: Acute Problem details: Patient found to have positive blood cultures for Streptococcus species obtained on admission. 4 of 4 bottles positive. Patient was not meeting sepsis criteria on admission. Has improved through course of treatment with ertapenem and Flagyl without specific strep treatment. Speciation and sensitivities pending. Repeat blood cultures performed today. Discharge/Transfer (Swing Bed) - Plan of Care Resident has been informed of condition and prognosis?: Yes Mobility Status: ambulatory with assistance Goal of treatment:: complete IV abx due to allergies adn inability to take PO Rehab Potential: Good I concur with the most recent H&P: Yes Date of most recent H&P: 02/21/18 Certification: I have reviewed and agree with this resident's plan of care. I certify that post-hospital longterm facility services are required to be given on an inpatient basis because of the need for longterm care on a continuing basis for the condition(s) for which he/she is receiving inpatient hospital services prior to admission to swing bed. I also certify that the resident meets existing SNF level of care definition. - Discharge from Acute Disposition: [facility] Condition: Good Current Home Med List: Home Medications Medication Instructions Recorded Confirmed Type Bisoprolol Fumarate [Bisoprolol 5 mg PO DAILY 02/21/18 02/21/18 History 5mg Tablet] Diclofenac Sodium [Diclofenac Sod 1 applicatio TP DIRECTED 02/21/18 02/21/18 History 100gm Topical Gel] Lisinopril [Lisinopril 5mg Tablet] 5 mg PO DAILY 02/21/18 02/21/18 History Polyethylene Glycol 3350 [Miralax 17 gm PO HS 02/21/18 02/21/18 History 17gm Packet] Home Med List for [facility] Bed: New Acetaminophen [Acetaminophen 325mg tab] 650 mg PO Q4HP PRN tablet PRN Reason: As Needed For Fever Or Pain Pantoprazole Sodium [Protonix 40mg tablet] 40 mg PO HS tablet. Citalopram Hydrobromide [Celexa 40mg Tablet] 40 mg PO DAILY tablet Furosemide [Lasix 40mg tablet] 40 mg PO Q48H tablet Lisinopril [Zestril 20mg tab] 20 mg PO DAILY tablet LORazepam [Ativan 1mg tablet] 1 mg PO TIDP PRN tablet PRN Reason: NERVES Metoclopramide HCl [Reglan 10mg/2mL vial] 4 mg IVP Q6HP PRN vial PRN Reason: Nausea And Vomiting metroNIDAZOLE [metroNIDAZOLE 500mg Tablet] 500 mg PO TID tablet Ondansetron HCl/Pf [Zofran 4mg/2mL vial] 4 mg IV Q8HP PRN vial PRN Reason: Nausea Polyethylene Glycol 3350 [Miralax 17gm Packet] 17 gm PO Q12 powd.pack Sennosides [Senokot 8.6mg tablet] 8.6 mg PO DAILYP PRN tablet PRN Reason: Constipation Ertapenem Sodium [Invanz 1gm Vial] 1 gm IV Q24H vial Ipratropium/Albuterol Sulfate [Duoneb 3mL neb] 3 ml IH Q6HP PRN ampul.neb PRN Reason: Shortness Of Breath Continue oxycodone-acetaminophen 7.5 mg-325 mg tablet 1 tab PO Q6H PRN tab PRN Reason: pain sucralfate 1 gram tablet 1 g PO QID Bisoprolol Fumarate [Bisoprolol 5mg Tablet] 5 mg PO DAILY Discontinued loratadine 10 mg tablet 10 mg PO DAILY dexlansoprazole 60 mg capsule,biphase delayed release 60 mg PO DAILY furosemide 40 mg tablet 40 mg PO DAILY tab nitroglycerin 0.4 mg sublingual tablet 0.4 mg SUBLINGUAL Q5M PRN PRN Reason: Chest Pain escitalopram 20 mg tablet 20 mg PO DAILY tab Lisinopril [Lisinopril 5mg Tablet] 5 mg PO DAILY Diclofenac Sodium [Diclofenac Sod 100gm Topical Gel] 1 applicatio TP DIRECTED Polyethylene Glycol 3350 [Miralax 17gm Packet] 17 gm PO HS
== END 2018-02-23 16:20 | disposition swing bed (61) ==
LOC: ER 17:19 → 2ND 17:19 → OBSVTOIN 23:05 → 2ND 23:06
PROVIDERS: ADMIT Family Medicine; ATTEND Internal Medicine Adolescent Medicine

== ENCOUNTER 2018-02-23 16:20 | Inpatient (IN) ==
--- NOTE | 2018-02-24 07:30 | Pharmacy Consult Notes ---
[facility] Pharmacy VTE Monitoring - Patient Demographics Admission date: 02/23/18 Report Date: 02/24/18 Time: 07:30 Allergies/Adverse Reactions: Patient Allergies levofloxacin [From Levaquin] Allergy (Intermediate, Verified 02/20/18 23:06) Hallucinating Tetanus Vaccines and Toxoid Allergy (Mild, Verified 02/20/18 23:06) Rash cephalexin [From KEFLEX] Allergy (Unknown, Verified 02/20/18 23:06) NA-NAUSEA/VOMITING ciprofloxacin [From CIPRO] Allergy (Unknown, Verified 02/20/18 23:06) NA-NAUSEA/VOMITING codeine [CODEINE] Allergy (Unknown, Verified 02/20/18 23:06) NA-NAUSEA/VOMITING fexofenadine [From TYLER] Allergy (Unknown, Verified 02/20/18 23:06) NA-NAUSEA/VOMITING morphine [MORPHINE] Allergy (Unknown, Verified 02/20/18 23:06) CONFUSION Penicillins [PENICILLINS] Allergy (Unknown, Verified 02/20/18 23:06) I-HIVES promethazine [From PHENERGAN] Allergy (Unknown, Verified 02/20/18 23:06) Sulfa (Sulfonamide Antibiotics) [SULFA (SULFONAMIDE ANTIBIOTICS)] Allergy (Unknown, Verified 02/20/18 23:06) NA-NAUSEA/VOMITING Height: 1.61 m Weight: 73.227 kg - VTE Risk Was VTE Risk Assessment Performed: Yes VTE Score: 8 VTE Risk Level: Moderate Risk - Prophylaxis VTE Prophylaxis Ordered?: Yes Types of VTE Prophylaxis: TEDS Knee High Location of Applied Device: Bilateral Lower Extremeties - VTE Diagnosis Confirmed Treatment or plan recommended: Continue Current Treatment
--- NOTE | 2018-02-25 08:16 | Progress Note ---
Internal Medicine - PN: Subj *Date: 02/25/18 *Time: 08:14 Interval history: Patient has done well in the swing bed with continuing IV antibiotics. Eating breakfast well and vigorously. Is alert. Plan talkative. Exam Vital signs and Labs for Last 24 Hours: Temp Pulse Resp BP Pulse Ox 98.3 F 104 H 16 157/94 97 02/25/18 07:37 02/25/18 07:37 02/25/18 07:37 02/25/18 07:37 02/25/18 07:37 I & O for Last 24 hours: Intake & Output 02/22/18 02/23/18 02/24/18 02/25/18 11:59 11:59 11:59 11:59 Intake Total 500 / 500 1073 / 1073 Output Total 200 / 200 1550 / 1550 Balance 300 / 300 -477 / -477 Weight 161 lb 7 oz 165 lb 3 oz Narrative: Oropharynx clear, no JVD. Lungs are clear bilaterally. Heart rate regular with no murmurs. Abdomen soft, minimal tenderness with vigorous palpation in the lower quadrants but no rebound or guarding.. Assessment and Plan (1) Diverticulitis Problem details: Intervally improved during admission. Continue antibiotics. Due to antibiotic allergies need to continue IV ertapenem. Transition to oral Flagyl. Unable to tolerate transition to Levaquin due to allergy. Continue course of treatment for 7-10 days from initiation of antibiotics. transitioned to swing for completion of treatment. Current visit: No Status: Acute Category: Medical Code(s): K57.92 - Diverticulitis of intestine, part unspecified, without perforation or abscess without bleeding Improving, tolerating diet well. (2) Streptococcal bacteremia Current visit: Yes Status: Acute Category: Medical Code(s): R78.81 - Bacteremia; B95.5 - Unspecified streptococcus as the cause of diseases classified elsewhere Unusual streptococcal species causing bacteremia. Continue current therapy. Repeat cultures pending. Continue of IV antibiotics.
--- NOTE | 2018-02-27 08:56 | Progress Note ---
Internal Medicine - PN: Subj *Date: 02/27/18 *Time: 08:56 Exam Vital signs and Labs for Last 24 Hours: Temp Pulse Resp BP Pulse Ox 98.6 F 105 H 20 178/86 92 L 02/27/18 07:58 02/27/18 07:58 02/27/18 07:58 02/27/18 07:58 02/27/18 07:58 I & O for Last 24 hours: Intake & Output 02/24/18 02/25/18 02/26/18 02/27/18 23:59 23:59 23:59 23:59 Intake Total 953 / 953 360 / 360 600 / 600 240 / 240 Output Total 1050 / 1050 2500 / 2500 300 / 300 Balance -97 / -97 -2140 / -2140 300 / 300 240 / 240 Weight 73.227 kg 74.928 kg 76.26 kg 77.706 kg Assessment and Plan (1) Diverticulitis Problem details: Intervally improved during admission. Continue antibiotics. Due to antibiotic allergies need to continue IV ertapenem. Transition to oral F lagyl. Unable to tolerate transition to Levaquin due to allergy. Continue course of treatment for 7-10 days from initiation of antibiotics. transitioned to swing for completion of treatment. Current visit: No Status: Acute Category: Medical Code(s): K57.92 - Diverticulitis of intestine, part unspecified, without perforation or abscess without bleeding (2) Streptococcal bacteremia Current visit: Yes Status: Acute Category: Medical Code(s): R78.81 - Bacteremia; B95.5 - Unspecified streptococcus as the cause of diseases classified elsewhere The patient's infection will respond to the chosen ABx?: Yes Is the patient receiving the right drug, dose, and route?: Yes Could a more targeted ABx be ordered?: No (PATIENT IMPROVING)
[2018-02-28 07:08] LABS: Basophils # 0.1 K/mm3 (0-0.2); Basophils % 0.9 % (0.1-2.0); Eosinophils # 0.3 K/mm3 (0.0-0.4); Hematocrit 37.8 % (37.0-47.0); Hemoglobin 11.9 g/dL (12.2-16.2); Lymphocytes # 2.4 K/mm3 (0.7-4.5); Lymphocytes % 34.2 K/mm3 (10-50); Mean Corpuscular HGB Conc 31.4 g/dL (31.8-35.4); Mean Corpuscular Hemoglobin 31.6 pg (27.0-31.2); Mean Corpuscular Volume 100.4 fl (81-99); Mean Platelet Volume 7.6 fl (7.4-10.4); Monocytes # 1.1 K/mm3 (0.1-1.0); Monocytes % 15.4 % (1.7-9.3); Neutrophils # 3.2 K/mm3 (1.8-7.8); Neutrophils % 45.4 % (37.0-80.0); Platelet Count 208 K/mm3 (142-424); Red Blood Count 3.76 M/mm3 (4.20-5.40); Red Cell Distribution Width 15.9 % (11.5-17.5)
[2018-02-28 07:30] LABS: Albumin Level 2.7 gm/dL (3.4-5.0); Albumin/Globulin Ratio 0.9 (1.1-1.8); Bilirubin,Total 0.5 mg/dL (0.2-1.0); Calcium 8.2 mg/dL (8.5-10.1); Total Protein,Serum 5.7 gm/dL (6.4-8.2)
--- NOTE | 2018-02-28 07:44 | Progress Note ---
Internal Medicine - PN: Subj *Date: 02/28/18 *Time: 07:43 Interval history: Patient doing well in the swing bed. Was able to walk yesterday in the hallway. No complaints of abdominal pain except when palpation is performed. Exam Vital signs and Labs for Last 24 Hours: Temp Pulse Resp BP Pulse Ox 98.3 F 86 20 166/72 95 02/28/18 07:36 02/28/18 07:36 02/28/18 07:36 02/28/18 07:36 02/28/18 07:36 Laboratory Results - last 24 hr 02/28/18 06:59: WBC 7.0, RBC 3.76 L, Hgb 11.9 L, Hct 37.8, MCV 100.4 H, MCH 31.6 H, MCHC 31.4 L, RDW 15.9, Plt Count 208, MPV 7.6, Neut % (Auto) 45.4, Lymph % (Auto) 34.2, [place] % (Auto) 15.4 H, Eos % (Auto) 4.0, Baso % (Auto) 0.9, Neut # (Auto) 3.2, Lymph # (Auto) 2.4, [place] # (Auto) 1.1 H, Eos # (Auto) 0.3, Baso # (Auto) 0.1 02/28/18 06:59: Sodium 141, Potassium 3.0 L, Chloride 104, Carbon Dioxide 32, Anion Gap 8.0, BUN 11, Creatinine 0.79, Estimated Creat Clear 45, Estimated GFR 69, Est GFR ( Amer) 83, Glucose 97, Calcium 8.2 L, Total Bilirubin 0.5, AST 17, ALT 14, Alkaline Phosphatase 67, Total Protein 5.7 L, Albumin 2.7 L, Globulin 3.0, Albumin/Globulin Ratio 0.9 L I & O for Last 24 hours: Intake & Output 02/25/18 02/26/18 02/27/18 02/28/18 11:59 11:59 11:59 11:59 Intake Total 1073 / 1073 360 / 360 720 / 720 1501 / 1501 Output Total 2450 / 2450 1400 / 1400 3000 / 3000 Balance -1377 / -1377 -1040 / -1040 720 / 720 -1499 / -1499 Weight 165 lb 3 oz 168 lb 2 oz 171 lb 5 oz 163 lb 2 oz Narrative: Patient's pleasant, awake. Oropharynx clear. Heart rate regular. Lungs are clear, abdomen slightly tender both lower quadrants rebound or guarding. No edema. Assessment and Plan (1) Diverticulitis Problem details: Intervally improved during admission. Continue antibiotics. Due to antibiotic allergies need to continue IV ertapenem. Transition to oral Flagyl. Unable to tolerate transition to Levaquin due to allergy. Continue course of treatment for 7-10 days from initiation of antibiotics. transitioned to swing for completion of treatment. Current visit: No Status: Acute Category: Medical Code(s): K57.92 - Diverticulitis of intestine, part unspecified, without perforation or abscess without bleeding (2) Streptococcal bacteremia Current visit: Yes Status: Acute Category: Medical Code(s): R78.81 - Bacteremia; B95.5 - Unspecified streptococcus as the cause of diseases classified elsewhere - Assessment and plan all Dx Assessment and Plan for all problems:: See pharmacy notes and Agree with continuing of antibiotics. Discharge early next week. Slightly hypokalemic this morning on labs. Replace orally.
[2018-03-01 05:57] LABS: Anion Gap 9.2 mEq/L (5-15); Calcium 8.4 mg/dL (8.5-10.1); Potassium 3.2 mmoL/L (3.5-5.1)
[2018-03-02 06:12] LABS: Anion Gap 9.8 mEq/L (5-15); Calcium 8.4 mg/dL (8.5-10.1); Potassium 3.8 mmoL/L (3.5-5.1)
--- NOTE | 2018-03-03 08:52 | Discharge Summary ---
General - General Admission date:: 02/23/18 Discharge date: 03/03/18 HPI HPI: Ms. Patel was admitted to acute care of [facility] with acute abdominal pain, nausea. Assessed by surgery after CT scan of abdomen showed concern for possible diverticulitis versus small peripheral with walled off collection. Responded well to antibiotics with ertapenem and Flagyl. Surgery felt patient's abdomen did not require surgical intervention, recommended continuing medical management. Patient's symptoms significantly improved over the duration of her hospitalization. Found to have blood cultures for Streptococcus. Repeat blood cultures pending. Due to patient's numerous antibiotic allergies, unable to transition to oral therapy for duration of treatment. Patient was to be stable she was transferred to [facility] bed for completion of antibiotics for acute abdomen and positive blood culture treatment. Hospital Course Hospital Course: Patient was admitted to swing bed and finished up her rounds of IV antibiotics. She was subjected to physical therapy and Occupational Therapy and they felt she would benefit ongoing skilled care. There is also some concern about her relationship with her daughter with whom she lives-the patient reportedly has nursing staff that "my daughter is mean to me and yells at me." The patient and daughter were agreeable with her going to [facility] for long- term care and we will continue her current medications at that facility. Note that patient has been on high-dose Percocet, 7.5 mg every 6 hours. Given her instability and chronic abdominal pain complaints in addition to her advanced age this seems somewhat high. We will adjust this down to every 8 hours at the halfway. Objective Vital signs: Temp Pulse Resp BP Pulse Ox 98.3 F 91 H 20 146/61 93 L 03/03/18 08:00 03/03/18 08:00 03/03/18 08:00 03/03/18 08:00 03/03/18 08:00 Narrative: Patient is alert, pleasant. Oropharynx clear. Edentulous. No JVD. No bruit. Lungs have good air movement heart rate regular. Abdomen is soft, a little tender in the left quadrant but this seems to be her baseline. No edema or clubbing. Able to move all extremities well. No skin breakdown. DS: Diagnosis - Discharge Diagnosis (1) Diverticulitis Status: Resolved Problem details: Intervally improved during admission. Continue antibiotics. Due to antibiotic allergies need to continue IV ertapenem . Transition to oral Flagyl. Unable to tolerate transition to Levaquin due to allergy. Continue course of treatment for 7-10 days from initiation of antibiotics. transitioned to swing for completion of treatment. (2) Streptococcal bacteremia Status: Resolved (3) Atrial fibrillation Status: Acute (4) COPD (chronic obstructive pulmonary disease) Status: Acute (5) Cardiac pacemaker in situ Status: Acute Discharge Plan - Patient Discharge Instructions ACTIVITY: Continue current activity, Up with assistance DIET: continue same diet - Follow up Plan Follow up with: Beth Salomon APRN [Nurse Practitioner] - 03/09/18 Disposition: [facility] Home Medications: Home Medications Medication Instructions Recorded Confirmed Type dexlansoprazole 60 mg 60 mg PO DAILY 06/22/17 02/24/18 History capsule,biphase delayed release escitalopram 20 mg tablet 20 mg PO DAILY tab 06/22/17 02/24/18 History furosemide 40 mg tablet 40 mg PO DAILY tab 06/22/17 02/24/18 History loratadine 10 mg tablet 10 mg PO DAILY 06/22/17 02/24/18 History nitroglycerin 0.4 mg sublingual 0.4 mg SUBLINGUAL Q5MINP PRN 06/22/17 02/24/18 History tablet sucralfate 1 gram tablet 1 g PO QID 06/22/17 02/24/18 History Bisoprolol Fumarate [Bisoprolol 5 mg PO DAILY 02/21/18 02/24/18 History 5mg Tablet] Diclofenac Sodium [Diclofenac Sod 1 applicatio TP DIRECTED 02/21/18 02/24/18 History 100gm Topical Gel] Lisinopril [Lisinopril 5mg Tablet] 5 mg PO DAILY 02/21/18 02/24/18 History Polyethylene Glycol 3350 [Miralax 17 gm PO HS 02/21/18 02/24/18 History 17gm Packet] Prescriptions/Medication Reconciliation: New LORazepam [Ativan 1mg tablet] 1 mg PO TIDP PRN #90 tab PRN Reason: NERVES Continue loratadine 10 mg tablet 10 mg PO DAILY dexlansoprazole 60 mg capsule,biphase delayed release 60 mg PO DAILY furosemide 40 mg tablet 40 mg PO DAILY tab nitroglycerin 0.4 mg sublingual tablet 0.4 mg SUBLINGUAL Q5MINP PRN PRN Reason: Chest Pain sucralfate 1 gram tablet 1 g PO QID escitalopram 20 mg tablet 20 mg PO DAILY tab Lisinopril [Lisinopril 5mg Tablet] 5 mg PO DAILY Diclofenac Sodium [Diclofenac Sod 100gm Topical Gel] 1 applicatio TP DIRECTED Bisoprolol Fumarate [Bisoprolol 5mg Tablet] 5 mg PO DAILY Polyethylene Glycol 3350 [Miralax 17gm Packet] 17 gm PO HS Changed Oxycodone HCl/Acetaminophen [Percocet 7.5/325mg tablet] 1 tab PO Q8 PRN 30 Days #90 tab PRN Reason: pain
== END 2018-03-03 12:35 ==
LOC: 2ND 16:20
PROVIDERS: ADMIT Internal Medicine Adolescent Medicine; ATTEND Internal Medicine Adolescent Medicine
CPT/HCPCS: 36415; 80048; 80053; 85025; 87507; 94640; 94761; 97110; 97116; 97165; 97530; 97535; J1335; J2405

== ENCOUNTER 2018-03-08 12:54 | Inpatient (IN) ==
--- NOTE | 2018-03-08 13:22 | Emergency Department Note ---
ED Disposition Clinical Impression: Pneumonia, Altered mental state, Medication side effect, Pleural effusion, DNR (do not resuscitate), S/P cardiac pacemaker procedure Disposition: Still a Patient Condition on Discharge: Fair Instructions: DI for Altered Mental Status Referrals: Henry Kim MD [Primary Care Provider] - - Critical Care Critical Care Time: No Attestation: On 03/08/18, the high probability of a clinically significant, sudden or life threatening deterioration of the following system(s) required my full and direct attention, intervention and personal management. The time I documented below is in addition to time spent performing reported procedures but includes the following listed in this critical care notation. Medical Decision Making - Medical Records Medical records reviewed: Yes: I reviewed the patient's medical records. - [place] Inquiry Pt receiving controlled substance: No [place] was queried for this patient: No Vital Signs: 03/08/18 12:55 03/08/18 14:43 Temperature 98.9 F Temperature Source Oral Pulse Rate [Left Radial] 73 64 Respiratory Rate 18 Blood Pressure [Right Arm] 132/63 140/97 H Blood Pressure Mean [Right Arm] 86 111 Blood Pressure Source [Right Arm] Automatic Cuff Automatic Cuff Blood Pressure Position [Right Arm] Sitting Supine 02 Sat by Pulse Oximetry 96 97 Oxygen Delivery Method Room Air Room Air - Lab Data Lab Results 03/08/18 14:00: WBC 10.0, RBC 4.26, Hgb 13.5, Hct 42.4, MCV 99.5 H, MCH 31.6 H, MCHC 31.8, RDW 15.9, Plt Count 250, MPV 8.4, Neut % (Auto) 61.6, Lymph % (Auto) 24.5, [place] % (Auto) 12.3 H, Eos % (Auto) 1.0, Baso % (Auto) 0.6, Neut # (Auto) 6.1, Lymph # (Auto) 2.4, [place] # (Auto) 1.2 H, Eos # (Auto) 0.1, Baso # (Auto) 0.1 03/08/18 14:00: Sodium 139, Potassium 3.3 L, Chloride 98, Carbon Dioxide 32, Anion Gap 12.3, BUN 9, Creatinine 0.69, Estimated Creat Clear 46, Estimated GFR 80, Est GFR ( Amer) 97, Glucose 96, Calcium 8.7, Total Bilirubin 1.1 H, AST 47 H, ALT 26, Alkaline Phosphatase 73, Total Protein 7.1, Albumin 3.4, Globulin 3.7 H, Albumin/Globulin Ratio 0.9 L 03/08/18 14:00: Total Creatine Kinase 405 H, CK-MB (CK-2) 2.8, CK-MB (CK-2) Rel Index 0.7, Troponin I 0.03 03/08/18 14:00: Lactate 1.8 03/08/18 : Urine Opiates Screen Negative, Urine Methadone Screen Negative, Ur Barbituates Screen Negative, Ur Phencyclidine Scrn Negative, Ur Amphetamines Screen Negative, U Benzodiazepines Scrn Negative, Urine Cocaine Screen Negative, U Marijuana (THC) Screen Negative Result diagrams: 03/08/18 14:00 03/08/18 14:00 Orders (Tests/Meds): ORDERS Category Date Time Status ECG Request by /Ch[facility] Stat Y 03/08/18 13:01 Ordered - CT Data CT Scan: Head Time Received: 15:[address] Reviewed: Yes: I have viewed the radiologist's interpretation Preliminary Findings: Abnormal Findings Narrative: IMPRESSION: 1. No acute intracranial findings. 2. Atrophy with chronic ischemic changes MPRESSION: 1. Patchy bibasilar infiltrates with trace right effusion. 2. Small calcific density along the posterior aspect of the common bile duct etiology indeterminate. Tiny common bile duct stone is a consideration. 3. Otherwise negative unenhanced CT abdomen and pelvis - ECG Data Tracing #1 Paced rhythm 80/min. ECG initial impression date: 03/08/18 ECG initial impression time: 13:50 Medical Decision Narrative: I spoke with the family informing them that she has patchy infiltrates with no fever no white count. Her drug screen was negative. I discussed the abnormal findings with Dr. Means who wanted to hold antibiotics as she has no evidence of infection clinically. Dr. Kim will admit the patient for observation requested an MRI with no contrast and EEG. Altered Mental Status HPI - General Chief Complaint: Altered Mental Status Stated Complaint: AMS Time Seen by Provider: 03/08/18 13:00 Mode of Arrival: EMS Limitations: Altered Mental Status Description of Symptoms (Recalled from ER Triage Doc. by RN): Per assisted pt has became more confused over the last 4 days. She acts like she is driving a car. Pt can tell me where she is. - History of Present Illness HPI narrative: 87 years old white female medical problems and most recent admission to the hospital for acute diverticulitis and streptococcal bacteremia. After 9 days length of stay in the hospital she was [facility]. She did well on the first day but she has been having a gradual fluctuant decline over the last 3 days. She has no fever no chills no chest pain no palpitations no nausea no vomiting no diarrhea. But she does have occasional shaking chills. The family states that the patient is not ambulatory, she does not recognize them seems to be getting weaker by the day. Has no focal symptoms of weakness or involuntary movement. Has no loss of consc iousness. MD complaint: altered mental status Onset (ago): day(s) (3 days.) Timing confirmed by: family member Severity: moderate Consistency of symptoms: getting worse Context: unknown Associated symptoms: denies other symptoms - Related Data Home Medications Medication Instructions Recorded Confirmed dexlansoprazole 60 mg 60 mg PO DAILY 06/22/17 03/08/18 capsule,biphase delayed release escitalopram 20 mg tablet 20 mg PO DAILY tab 06/22/17 03/08/18 furosemide 40 mg tablet 40 mg PO DAILY tab 06/22/17 03/08/18 loratadine 10 mg tablet 10 mg PO DAILY 06/22/17 03/08/18 nitroglycerin 0.4 mg sublingual 0.4 mg SUBLINGUAL Q5MINP PRN 06/22/17 03/08/18 tablet sucralfate 1 gram tablet 1 g PO QID 06/22/17 03/08/18 Bisoprolol Fumarate [Bisoprolol 5 mg PO DAILY 02/21/18 03/08/18 5mg Tablet] Diclofenac Sodium [Diclofenac Sod 1 applicatio TP DIRECTED 02/21/18 03/08/18 100gm Topical Gel] Lisinopril [Lisinopril 5mg Tablet] 5 mg PO DAILY 02/21/18 03/08/18 Polyethylene Glycol 3350 [Miralax 17 gm PO HS 02/21/18 03/08/18 17gm Packet] Previous Rx's Medication Instructions Recorded LORazepam [Ativan 1mg tablet] 1 mg PO TIDP PRN #90 tab 03/03/18 Oxycodone HCl/Acetaminophen 1 tab PO Q8 PRN 30 Days #90 tab 03/03/18 [Percocet 7.5/325mg tablet] Allergies Allergy/AdvReac Type Severity Reaction Status Date / Time levofloxacin [From Levaquin] Allergy Intermediate Hallucinati Verified 02/20/18 23:06 ng Tetanus Vaccines and Toxoid Allergy Mild Rash Verified 02/20/18 23:06 cephalexin [From KEFLEX] Allergy Unknown NA-NAUSEA/V Verified 02/20/18 23:06 OMITING ciprofloxacin [From CIPRO] Allergy Unknown NA-NAUSEA/V Verified 02/20/18 23:06 OMITING codeine [CODEINE] Allergy Unknown NA-NAUSEA/V Verified 02/20/18 23:06 OMITING fexofenadine [From TYLER] Allergy Unknown NA-NAUSEA/V Verified 02/20/18 23:06 OMITING morphine [MORPHINE] Allergy Unknown CONFUSION Verified 02/20/18 23:06 Penicillins [PENICILLINS] Allergy Unknown I-HIVES Verified 02/20/18 23:06 promethazine [From PHENERGAN] Allergy Unknown Verified 02/20/18 23:06 Sulfa (Sulfonamide Allergy Unknown NA-NAUSEA/V Verified 02/20/18 23:06 Antibiotics) OMITING [SULFA (SULFONAMIDE ANTIBIOTICS)] [facility] History I have reviewed the patient's past medical history: Yes Medical History: Reports:: Asthma, Atrial Fibrillation, Cancer (lymphoma), Cerebrovascular Accident, Hyperlipidemia, Hypertension, Internal Pacemaker, Myocardial Infarction Denies:: Diabetes Mellitus Type 1, Diabetes Mellitus Type 2 Other Medical History: Reports: Arthritis Laterality Cases: Left: Arthroscopy Shoulder, Bilateral: Arthroscopy Knee Other Surgeries: Yes: Hysterectomy-Partial, Pacemaker, Splenectomy, Other (brok en back, cholecystectomy, shoulders) Amputation: No Fractures: No - Social History Smoking Status: Never smoker Alcohol Intake: never Alcohol Intake Frequency:: other Occupational Status: retired Housing: house Household Members: family, children - Psychiatric History Expresses thoughts of harming self/others: None Suicide Plan Description: No Plan Family Hx:: Coronary Artery Disease ROS Obtained: Yes All systems reviewed & no additional complaints Physical Exam - General General appearance: alert, in no apparent distress, anxious - Head Head exam: atraumatic, normocephalic, normal inspection - Eye Eye exam: Present: normal appearance, PERRL, EOMI. Absent: scleral icterus, nystagmus, miosis - ENT ENT exam: Present: normal exam, normal oropharynx, mucous membranes moist - Neck Neck exam: Present: normal inspection, full ROM, trachea midline, other (No carotid bruit.). Absent: tenderness, meningismus, lymphadenopathy, thyromegaly - Chest Chest inspection: Present: normal inspection, symmetric chest wall rise. Absent: tenderness - Respiratory Respiratory exam: Present: normal lung sounds bilaterally. Absent: respiratory distress - Cardiovascular Cardiovascular exam: Present: regular rate, normal rhythm, normal heart sounds. Absent: JVD - Abdominal Exam Abdominal exam: Present: soft, tenderness, normal bowel sounds, other (Mild tenderness of the left lower quadrant.). Absent: distention, guarding, Maloney's sign, tenderness at McBurney's Point - External exam: Present: normal external exam - Extremities Exam Extremities exam: Present: normal inspection, full ROM, normal capillary refill, pedal edema (Trace pedal edema.). Absent: tenderness, calf tenderness - Back Exam Back exam: Present: normal inspection. Absent: tenderness, CVA tenderness (R), CVA tenderness (L) - Neurological Exam Neurological exam: Present: alert, CN II-XII intact, motor sensory deficit, reflexes normal, other (She has slow speech and shaking chills.) - Psychiatric Psychiatric exam: Present: normal mood - Skin Skin exam: Present: warm, dry, intact, normal color - Lymphatic Lymphatic Findings: no adenopathy
[2018-03-08 14:12] LABS: Basophils # 0.1 K/mm3 (0-0.2); Basophils % 0.6 % (0.1-2.0); Eosinophils # 0.1 K/mm3 (0.0-0.4); Hematocrit 42.4 % (37.0-47.0); Hemoglobin 13.5 g/dL (12.2-16.2); Lymphocytes # 2.4 K/mm3 (0.7-4.5); Lymphocytes % 24.5 K/mm3 (10-50); Mean Corpuscular HGB Conc 31.8 g/dL (31.8-35.4); Mean Corpuscular Hemoglobin 31.6 pg (27.0-31.2); Mean Corpuscular Volume 99.5 fl (81-99); Mean Platelet Volume 8.4 fl (7.4-10.4); Monocytes # 1.2 K/mm3 (0.1-1.0); Monocytes % 12.3 % (1.7-9.3); Neutrophils # 6.1 K/mm3 (1.8-7.8); Neutrophils % 61.6 % (37.0-80.0); Platelet Count 250 K/mm3 (142-424); Red Blood Count 4.26 M/mm3 (4.20-5.40); Red Cell Distribution Width 15.9 % (11.5-17.5)
[2018-03-08 14:24] LABS: Albumin Level 3.4 gm/dL (3.4-5.0); Albumin/Globulin Ratio 0.9 (1.1-1.8); Anion Gap 12.3 mEq/L (5-15); Bilirubin,Total 1.1 mg/dL (0.2-1.0); Calcium 8.7 mg/dL (8.5-10.1); Globulin 3.7 gm/dl (1.3-3.2); Potassium 3.3 mmoL/L (3.5-5.1); Total Protein,Serum 7.1 gm/dL (6.4-8.2)
[2018-03-08 15:00] LABS: Amphetamine/Metha Screen,Urine Negative ng/mL (<1000); Barbiturates Screen,Urine Negative ng/mL (<200); Benzodiazepines Screen,Urine Negative ng/mL (<200); Cannabinoid Screen,Urine Negative ng/mL (<50); Cocaine Screen,Urine Negative ng/mL (<300); Methadone Screen,Urine Negative ng/mL (<300); Opiate Screen,Urine Negative ng/mL (<300); Phencyclidine Screen,Urine Negative ng/mL (<25)
--- NOTE | 2018-03-08 17:27 | History & Physical Report ---
*Admission Date: 03/08/18 *Chief complaint: Altered mental status *History of present illness: 87-year-old white female, long-term patient of Dr. Adrián Patel, who last month was on our service for diverticulitis exacerbation with possible microperforation and admitted to swing bed for long-term IV antibiotics. She also had a somewhat curious streptococcal bacteremia that was felt to be a possible contaminant but was treated with the long-term IV antibiotics as noted. After patient finished her course of IV antibiotics she was [place] [facility] [place], functional status evaluation and ongoing nursing care. She initially did well. We made a couple of medication changes, including decreasing her Percocet therapy from every 6 hours to every 8 hours because of some lethargy issues. She was also continued on her benzodiazepine. This morning, her family noted that she was not herself, and that she was doing some "jerking" behaviors. They were concerned about her pacemaker firing inappropriately and requested transfer to the emergency department In the emergency department the ER physician noted that she was markedly different than her previous admission which he had been involved in, with disorientation, lack of recognition of family members, etc. Significant workup including head CT, labs and other diagnostic testing was unrevealing although interestingly her urine drug screen did not show any evidence of benzodiazepine or opiate presence. She was transferred to second floor for further evaluation/observation and diagnostic testing. [facility] History I have reviewed the patient's past medical history: Yes Medical History: Reports:: Asthma, Atrial Fibrillation, Cancer (lymphoma), Cerebrovascular Accident, Hyperlipidemia, Hypertension, Internal Pacemaker, Myocardial Infarction Denies:: Diabetes Mellitus Type 1, Diabetes Mellitus Type 2 Other Medical History: Reports: Arthritis Comment: Long-term benzodiazepine and opiate use Laterality Cases: Left: Arthroscopy Shoulder, Bilateral: Arthroscopy Knee Other Surgeries: Yes: Hysterectomy-Partial, Pacemaker, Splenectomy, Other (broken back, cholecystectomy, shoulders) Amputation: No Fractures: No - *Social History Educational Level: Completed High School Smoking Status: Never smoker Alcohol Intake: never Alcohol Intake Frequency:: other Occupational Status: retired Housing: house Household Members: family, children - Psychiatric History Expresses thoughts of harming self/others: None Suicide Plan Description: No Plan *Family Hx:: Coronary Artery Disease Review of Systems - Review of Systems Review of systems:: unable to obtain Patient is obtunded. Unresponsive to verbal stimuli. Meds Home Medications Medication Instructions Recorded Confirmed Type dexlansoprazole 60 mg 60 mg PO DAILY 06/22/17 03/08/18 History capsule,biphase delayed release escitalopram 20 mg tablet 20 mg PO DAILY tab 06/22/17 03/08/18 History furosemide 40 mg tablet 40 mg PO DAILY tab 06/22/17 03/08/18 History loratadine 10 mg tablet 10 mg PO DAILY 06/22/17 03/08/18 History nitroglycerin 0.4 mg sublingual 0.4 mg SUBLINGUAL Q5MINP PRN 06/22/17 03/08/18 History tablet sucralfate 1 gram tablet 1 g PO QID 06/22/17 03/08/18 History Bisoprolol Fumarate [Bisoprolol 5 mg PO DAILY 02/21/18 03/08/18 History 5mg Tablet] Diclofenac Sodium [Diclofenac Sod 1 applicatio TP DIRECTED 02/21/18 03/08/18 History 100gm Topical Gel] Lisinopril [Lisinopril 5mg Tablet] 5 mg PO DAILY 02/21/18 03/08/18 History Polyethylene Glycol 3350 [Miralax 17 gm PO HS 02/21/18 03/08/18 History 17gm Packet] Allergies Allergy/AdvReac Type Severity Reaction Status Date / Time levofloxacin [From Levaquin] Allergy Intermediate Hallucinati Verified 02/20/18 23:06 ng Tetanus Vaccines and Toxoid Allergy Mild Rash Verified 02/20/18 23:06 cephalexin [From KEFLEX] Allergy Unknown NA-NAUSEA/V Verified 02/20/18 23:06 OMITING ciprofloxacin [From CIPRO] Allergy Unknown NA-NAUSEA/V Verified 02/20/18 23:06 OMITING codeine [CODEINE] Allergy Unknown NA-NAUSEA/V Verified 02/20/18 23:06 OMITING fexofenadine [From TYLER] Allergy Unknown NA-NAUSEA/V Verified 02/20/18 23:06 OMITING morphine [MORPHINE] Allergy Unknown CONFUSION Verified 02/20/18 23:06 Penicillins [PENICILLINS] Allergy Unknown I-HIVES Verified 02/20/18 23:06 promethazine [From PHENERGAN] Allergy Unknown Verified 02/20/18 23:06 Sulfa (Sulfonamide Allergy Unknown NA-NAUSEA/V Verified 02/20/18 23:06 Antibiotics) OMITING [SULFA (SULFONAMIDE ANTIBIOTICS)] Exam Vital signs and Labs for Last 24 Hours: Temp Pulse Resp BP Pulse Ox 98.4 F 54 L 18 122/78 90 L 03/08/18 16:23 03/08/18 16:23 03/08/18 16:23 03/08/18 15:49 03/08/18 16:23 Laboratory Results - last 24 hr 03/08/18 14:00: WBC 10.0, RBC 4.26, Hgb 13.5, Hct 42.4, MCV 99.5 H, MCH 31.6 H, MCHC 31.8, RDW 15.9, Plt Count 250, MPV 8.4, Neut % (Auto) 61.6, Lymph % (Auto) 24.5, [place] % (Auto) 12.3 H, Eos % (Auto) 1.0, Baso % (Auto) 0.6, Neut # (Auto) 6.1, Lymph # (Auto) 2.4, [place] # (Auto) 1.2 H, Eos # (Auto) 0.1, Baso # (Auto) 0.1 03/08/18 14:00: Sodium 139, Potassium 3.3 L, Chloride 98, Carbon Dioxide 32, Anion Gap 12.3, BUN 9, Creatinine 0.69, Estimated Creat Clear 46, Estimated GFR 80, Est GFR ( Amer) 97, Glucose 96, Calcium 8.7, Total Bilirubin 1.1 H, AST 47 H, ALT 26, Alkaline Phosphatase 73, Total Protein 7.1, Albumin 3.4, Globulin 3.7 H, Albumin/Globulin Ratio 0.9 L 03/08/18 14:00: Total Creatine Kinase 405 H, CK-MB (CK-2) 2.8, CK-MB (CK-2) Rel Index 0.7, Troponin I 0.03 03/08/18 14:00: Lactate 1.8 03/08/18 : Urine Opiates Screen Negative, Urine Methadone Screen Negative, Ur Barbituates Screen Negative, Ur Phencyclidine Scrn Negative, Ur Amphetamines Screen Negative, U Benzodiazepines Scrn Negative, Urine Cocaine Screen Negative, U Marijuana (THC) Screen Negative I & O for Last 24 hours: Intake & Output 03/06/18 03/07/18 03/08/1803/09/18 11:59 11:59 11:59 11:59 Weight 147 lb 9 oz Narrative: Patient examined on second floor. Lying in hospital bed. Random myoclonic jerks of upper and lower extremities and no discernible pattern. Patient will respond with withdrawal to painful stimuli and will moan with sternal rub. Anterior lung samuel are clear. Abdomen soft and nontender, no masses palpable. Heart rate regular. No murmurs. Extremities are warm and well-perfused. No edema or clubbing. Oropharynx clear. Lower plate dentures are out, no oral lesions, mouth is moist. No tongue deviation. Neurologic exam is otherwise very limited. Assessment and Plan (1) Altered mental state Current visit: Yes Status: Acute Category: Medical Code(s): R41.82 - Altered mental status, unspecified Very wide differential diagnosis. No evidence of current infectious status. When patient is able would like to get improved chest x-ray. This "patchy infiltrate" is concerning but in the absence of leukocytosis or fever would not start antibiotics. Possible seizure issues-EEG tomorrow. I am also concerned about the lack of opiates and benzodiazepines in her urine. Possible medication administration interruption at the custodial? Plan will be to give her 1 dose of Dilaudid and Ativan intravenously and see if this helps with possible withdrawal symptoms. Discussed case with daughter and her . They continue to wish her DNR status to be respected. (2) DNR (do not resuscitate) Current visit: Yes Status: Acute Category: Medical Code(s): Z66 - Do not resuscitate
[2018-03-09 06:02] LABS: Basophils # 0.1 K/mm3 (0-0.2); Basophils % 0.9 % (0.1-2.0); Eosinophils # 0.1 K/mm3 (0.0-0.4); Eosinophils % 1.5 % (0.1-12.0); Hematocrit 36.1 % (37.0-47.0); Lymphocytes # 1.8 K/mm3 (0.7-4.5); Lymphocytes % 21.4 K/mm3 (10-50); Mean Corpuscular HGB Conc 31.4 g/dL (31.8-35.4); Mean Corpuscular Hemoglobin 31.1 pg (27.0-31.2); Mean Corpuscular Volume 99.2 fl (81-99); Monocytes # 1.1 K/mm3 (0.1-1.0); Neutrophils # 5.2 K/mm3 (1.8-7.8); Neutrophils % 63.3 % (37.0-80.0); Platelet Count 212 K/mm3 (142-424); Red Blood Count 3.65 M/mm3 (4.20-5.40); Red Cell Distribution Width 15.6 % (11.5-17.5); White Blood Count 8.2 K/mm3 (4.8-10.8)
[2018-03-09 06:15] LABS: Hemoglobin 11.5 g/dL (12.2-16.2)
[2018-03-09 06:18] LABS: Anion Gap 9.5 mEq/L (5-15)
[2018-03-09 06:21] LABS: Potassium 2.5 mmoL/L (3.5-5.1)
--- NOTE | 2018-03-09 07:55 | Pharmacy Consult Notes ---
[facility] VTE Monitoring - Patient Demographics Admission date: 03/08/18 Report Date: 03/09/18 Time: 07:55 Allergies/Adverse Reactions: Patient Allergies levofloxacin [From Levaquin] Allergy (Intermediate, Verified 02/20/18 23:06) Hallucinating Tetanus Vaccines and Toxoid Allergy (Mild, Verified 02/20/18 23:06) Rash cephalexin [From KEFLEX] Allergy (Unknown, Verified 02/20/18 23:06) NA-NAUSEA/VOMITING ciprofloxacin [From CIPRO] Allergy (Unknown, Verified 02/20/18 23:06) NA-NAUSEA/VOMITING codeine [CODEINE] Allergy (Unknown, Verified 02/20/18 23:06) NA-NAUSEA/VOMITING fexofenadine [From TYLER] Allergy (Unknown, Verified 02/20/18 23:06) NA-NAUSEA/VOMITING morphine [MORPHINE] Allergy (Unknown, Verified 02/20/18 23:06) CONFUSION Penicillins [PENICILLINS] Allergy (Unknown, Verified 02/20/18 23:06) I-HIVES promethazine [From PHENERGAN] Allergy (Unknown, Verified 02/20/18 23:06) Sulfa (Sulfonamide Antibiotics) [SULFA (SULFONAMIDE ANTIBIOTICS)] Allergy (Unknown, Verified 02/20/18 23:06) NA-NAUSEA/VOMITING Height: 1.55 m Weight: 66.933 kg Patient Problems: Current Active Problems Pneumonia (Acute) Altered mental state (Acute) Medication side effect (Acute) Pleural effusion (Acute) DNR (do not resuscitate) (Acute) S/P cardiac pacemaker procedure (Acute) - VTE Risk Labs: VTE Related Lab Results Hgb 11.5 g/dL (12.2-16.2) L D 03/09/18 05:48 Hct 36.1 % (37.0-47.0) L 03/09/18 05:48 Plt Count 212 K/mm3 (142-424) 03/09/18 05:48 BUN 9 mg/dL (7-18) 03/09/18 05:48 Creatinine 0.58 mg/dL (0.55-1.02) 03/09/18 05:48 Estimated Creat Clear 40 mL/min (0-300) 03/09/18 05:48 Was VTE Risk Assessment Performed: Yes VTE Score: 2 VTE Risk Level: Very Low Risk - Prophylaxis VTE Prophylaxis Ordered?: Yes Types of VTE Prophylaxis: TEDS Knee High Location of Applied Device: Bilateral Lower Extremeties
[2018-03-09 09:25] LABS: ABG Base Excess 1.9 mmol/L (-2.4-2.3); ABG HCO3 26.5 mmhg (22.0-26.0); ABG Oxygen Saturation 97 % (90-100); ABG PCO2 42.2 mmhg (35.0-45.0); ABG PH 7.42 mmol/L (7.35-7.45); ABG PO2 92.9 mmhg (80-100); ABG TCO2 27.7 mmhg (23-27)
[2018-03-09 09:26] LABS: Allen's Test Acceptable; Oxygen 2L %
--- NOTE | 2018-03-09 13:06 | Progress Note ---
Internal Medicine - PN: Subj Interval history: Patient remains confused this morning. Remains hemodynamically stable. No fever. 2 L nasal cannula which is her baseline oxygen requirement. Labs this morning significant for hypokalemia. Patient pleasantly confused and not able to answer questions appropriately. No vomiting or diarrhea night. Tolerating oral medication Exam Vital signs and Labs for Last 24 Hours: Temp Pulse Resp BP Pulse Ox 97.5 F L 76 16 153/43 H 96 03/09/18 08:00 03/09/18 08:00 03/09/18 08:00 03/09/18 08:00 03/09/18 08:00 Laboratory Results - last 24 hr 03/08/18 14:00: WBC 10.0, RBC 4.26, Hgb 13.5, Hct 42.4, MCV 99.5 H, MCH 31.6 H, MCHC 31.8, RDW 15.9, Plt Count 250, MPV 8.4, Neut % (Auto) 61.6, Lymph % (Auto) 24.5, [place] % (Auto) 12.3 H, Eos % (Auto) 1.0, Baso % (Auto) 0.6, Neut # (Auto) 6.1, Lymph # (Auto) 2.4, [place] # (Auto) 1.2 H, Eos # (Auto) 0.1, Baso # (Auto) 0.1 03/08/18 14:00: Sodium 139, Potassium 3.3 L, Chloride 98, Carbon Dioxide 32, Anion Gap 12.3, BUN 9, Creatinine 0.69, Estimated Creat Clear 46, Estimated GFR 80, Est GFR ( Amer) 97, Glucose 96, Calcium 8.7, Total Bilirubin 1.1 H, AST 47 H, ALT 26, Alkaline Phosphatase 73, Total Protein 7.1, Albumin 3.4, Globulin 3.7 H, Albumin/Globulin Ratio 0.9 L 03/08/18 14:00: Total Creatine Kinase 405 H, CK-MB (CK-2) 2.8, CK-MB (CK-2) Rel Index 0.7, Troponin I 0.03 03/08/18 14:00: Lactate 1.8 03/08/18 : Urine Opiates Screen Negative, Urine Methadone Screen Negative, Ur Barbituates Screen Negative, Ur Phencyclidine Scrn Negative, Ur Amphetamines Sc reen Negative, U Benzodiazepines Scrn Negative, Urine Cocaine Screen Negative, U Marijuana (THC) Screen Negative 03/09/18 05:48: WBC 8.2, RBC 3.65 L, Hgb 11.5 L D, Hct 36.1 L, MCV 99.2 H, MCH 31.1, MCHC 31.4 L, RDW 15.6, Plt Count 212, MPV 9.0, Neut % (Auto) 63.3, Lymph % (Auto) 21.4, [place] % (Auto) 13.0 H, Eos % (Auto) 1.5, Baso % (Auto) 0.9, Neut # (Auto) 5.2, Lymph # (Auto) 1.8, [place] # (Auto) 1.1 H, Eos # (Auto) 0.1, Baso # (Auto) 0.1 03/09/18 05:48: Sodium 143, Potassium 2.5 L* D, Chloride 105, Carbon Dioxide 31, Anion Gap 9.5, BUN 9, Creatinine 0.58, Estimated Creat Clear 40, Estimated GFR 98, Est GFR ( Amer) 118 D, Glucose 86, Calcium 8.0 L, Magnesium 1.6 03/09/18 09:00: Specimen Source Left brachial, O2 % 2l, ABG pH 7.42, ABG pCO2 42.2, ABG pO2 92.9, ABG HCO3 26.5 H, ABG Total CO2 27.7 H, ABG O2 Saturation 97, ABG Base Excess 1.9, Ramon Test Acceptable 03/09/18 11:37: Urine Color Lynsey, Urine Appearance Sl cloudy, Urine pH 6.0, Ur Specific Lead 1.025, Urine Protein 2+, Urine Glucose (UA) Negative, Urine Ketones 1+, Urine Blood 3+, Urine Nitrate Negative, Urine Bilirubin Negative, Urine Urobilinogen 0.2, Ur Leukocyte Esterase 2+ A, Urine RBC Occasional, Urine WBC Tntc A, Urine Bacteria 2+ A I & O for Last 24 hours: Intake & Output 03/06/18 03/07/18 03/08/18 03/09/18 23:59 23:59 23:59 23:59 Intake Total 0 / 0 708 / 708 Output Total 700 / 700 275 / 275 Balance -700 / -700 433 / 433 Weight 66.933 kg 66.933 kg - *Routine HEENT Exam Comments: Bitemporal wasting, sunken eyes, brains tacky - *Routine Neck Exam Present: supple, full ROM. Absent: JVD - *Routine Respiratory Exam Comments: Good bilaterally, coarse crackles bilateral posterior lung samuel worse right lower lobe. - *Routine Cardiovascular Exam Present: RRR - *Routine Abdominal Exam Present: soft, normoactive bowel sounds - *Routine Rectal Exam Patient deferred: visual exam - *Routine Exam Patient deferred: external exam - *Routine Extremities Exam Absent: cyanosis, clubbing, edema - *Routine Skin Exam Present: intact, dry. Absent: cyanosis, erythema - *Routine Neurological Exam Present: alert, altered mental status Assessment and Plan (1) Altered mental state Current visit: Yes Status: Acute Category: Medical Code(s): R41.82 - Altered mental status, unspecified Unclear etiology at this time. Suspect due to either medication effect, medication withdrawal, or recurrent infection as she was recently treated for sepsis, pneumonia, UTI. However, continues to have a very wide differential diagnosis. This "patchy infiltrate" is concerning but in the absence of leukocytosis or fever would not start antibiotics. - Possible seizure issues-EEG today. I am also concerned about the lack of opiates and benzodiazepines in her urine. Possible medication administration interruption at the long term? -Chest x-ray obtained with patchy right lower lobe infiltrate distant with previous imaging, unclear if this is resolved from previous image represents new pneumonia as per above -Blood gas obtained with no hypercarbia or acid-base disturbance -Blood cultures obtained, pending -No significant change in altered mental status after reinitiating home benzodiazepines. -If develops clear signs of infection, plan to initiate antibiotics at that time. (2) DNR (do not resuscitate) Current visit: Yes Status: Acute Category: Medical Code(s): Z66 - Do not resuscitate
--- NOTE | 2018-03-10 08:36 | Progress Note ---
Internal Medicine - PN: Subj *Date: 03/10/18 *Time: 08:33 Interval history: Patient is more alert and much more responsive this morning. Able to obey commands. Was able to eat a little bit of her breakfast. Had signs/symptoms of pulmonary edema last night through the night, I had the nurses and her 80 mg's of Lasix. Patient has had 1.3 L of urine output since that time. Interestingly urine culture is growing gram-positive cocci. Also interestingly, urinalysis from [facility] on March 08 was clean and culture report from this is negative. Exam Vital signs and Labs for Last 24 Hours: Temp Pulse Resp BP Pulse Ox 97.9 F 78 20 157/64 H 98 03/10/18 07:48 03/10/18 07:48 03/10/18 07:48 03/10/18 07:48 03/10/18 07:48 Laboratory Results - last 24 hr 03/09/18 09:00: Specimen Source Left brachial, O2 % 2l, ABG pH 7.42, ABG pCO2 42.2, ABG pO2 92.9, ABG HCO3 26.5 H, ABG Total CO2 27.7 H, ABG O2 Saturation 97, ABG Base Excess 1.9, Ramon Test Acceptable 03/09/18 11:37: Urine Color Lynsey, Urine Appearance Sl cloudy, Urine pH 6.0, Ur Specific [place] 1.025, Urine Protein 2+, Urine Glucose (UA) Negative, Urine Ketones 1+, Urine Blood 3+, Urine Nitrate Negative, Urine Bilirubin Negative, Urine Urobilinogen 0.2, Ur Leukocyte Esterase 2+ A, Urine RBC Occasional, Urine WBC Tntc A, Urine Bacteria 2+ A 03/10/18 04:55: Stl Aeromonas (PCR) Not detected, Stl C. cayetanensis PCR Not detected, Stool Rotavirus (PCR) Not detected, Stl Adenov F 40/41 PCR Not detected, Stool Astrovirus (PCR) Not detected, Stool Campylobacter PCR Not detected, Stl C.difficile Tox PCR Not detected, Stool Cryptosporidium PCR Not detected, Stl E.coli Shiga Tox PCR Not detected, Stool E coli O157 PCR Not detected, Stl Enterotoxigenic E PCR Not detected, Stool EPEC (PCR) Not detected, Stool EAEC (PCR) Not detected, Stl E. histolytica PCR Not detected, Stool Giardia Lamblia PCR Not detected, Stool Salmonella PCR Not detected, Stool Sapovirus (PCR) Not detected, Stl P. shigelloides PCR Not detected, Stl Shigella/EIEC PCR Not detected, St Y.enterocolitica PCR Not detected, Stool Vibrio (PCR) Not detected, Stl Vibrio cholerae PCR Not detected, Stl Norovirus GI/GII PCR Not detected I & O for Last 24 hours: Intake & Output 03/07/18 03/08/18 03/09/18 03/10/18 11:59 11:59 11:59 11:59 Intake Total 708 / 708 1135 / 1135 Output Total 975 / 975 1600 / 1600 Balance -267 / -267 -465 / -465 Weight 147 lb 9 oz Microbiology Reports for the Last 24 Hours: Microbiology 03/09/18 11:37 Urine,Catheterized Urine Culture - Preliminary Gram Positive Cocci Narrative: As noted in HPI patient is more alert, responsive. Anterior lung samuel are clear, heart rate regular. Abdomen is soft, able to move all extremities well. Assessment and Plan (1) Altered mental state Current visit: Yes Status: Acute Category: Medical Code(s): R41.82 - Altered mental status, unspecified (2) DNR (do not resuscitate) Current visit: Yes Status: Acute Category: Medical Code(s): Z66 - Do not resuscitate (3) UTI (urinary tract infection) Current visit: Yes Status: Acute Category: Medical Code(s): N39.0 - Urinary tract infection, site not specified Given the patient's admission presentation with obtundation this UTI was clearly the cause of her mental status changes and present on admission. Currently has gram-positive cocci. Improving on current antibiotic therapy. Await final culture results. (4) History of CVA (cerebrovascular accident) Current visit: Yes Status: Acute Category: Medical Code(s): Z86.73 - Personal history of transient ischemic attack (TIA), and cerebral infarction wi thout residual deficits Has residual deficit of mild aphasia.
[2018-03-11 08:19] LABS: Anion Gap 8.7 mEq/L (5-15); Calcium 8.1 mg/dL (8.5-10.1)
--- NOTE | 2018-03-11 08:19 | Discharge Summary ---
Addendum entered and electronically signed by Val Farah APRN 03/11/18 11:48: Patient has allergies to multiple antibiotics. Upon further review she was noted to have allergies to PCN as well with a reaction of hives. Hallucinations is not likely related to Levaquin, will proceed with Levaquin 500 mg po daily x 10 days. Addendum entered and electronically signed by Val Farah APRN 03/11/18 11:19: Family reports Levaquin causes hallucinations. Change to Augmentin 875/125 mg po Q12 hours x 10 days. Start probiotic daily. Original Note: General - General Admission date:: 03/09/18 Discharge date: 03/11/18 HPI HPI: 87-year-old white female, long-term patient of Dr. Adrián Patel, who last month was on our service for diverticulitis exacerbation with possible microperforati on and admitted to swing bed for long-term IV antibiotics. She also had a somewhat curious streptococcal bacteremia that was felt to be a possible contaminant but was treated with the long-term IV antibiotics as noted. After patient finished her course of IV antibiotics she was transferred [place] the [facility] [place], functional status evaluation and ongoing nursing care. She initially did well. We made a couple of medication changes, including decreasing her Percocet therapy from every 6 hours to every 8 hours because of some lethargy issues. She was also continued on her benzodiazepine. This morning, her family noted that she was not herself, and that she was doing some "jerking" behaviors. They were concerned about her pacemaker firing inappropriately and requested transfer to the emergency department In the emergency department the ER physician noted that she was markedly different than her previous admission which he had been involved in, with disorientation, lack of recognition of family members, etc. Significant workup including head CT, labs and other diagnostic testing was unrevealing although interestingly her urine drug screen did not show any evidence of benzodiazepine or opiate presence. She was transferred to second floor for further evaluation/observation and diagnostic testing. Hospital Course Hospital Course: Patient was admitted for further evaluation. CT chest showed bibasilar infiltrates and she was started on Invanz. CT head was unremarkable. Mental status has improved and she is more alert. Labs were at baseline with exception of low potassium. She was given replacement, repeat today was 2.7 today. She was given a loading dose PO and her scheduled potassium was increased to BID. Will recheck in the am. She is tolerating oral intake well without nausea or vomiting. Urine culture revealed enterococcus which was sensitive to Levaquin which she will be discharged on. Discharge to [facility] on Levaquin 500 mg x 10 days for pneumonia and UTI. Continue current diet. CMP tomorrow 03/12. FU with Wil Salomon APRN at on Thursday. Objective Vital signs: Temp Pulse Resp BP Pulse Ox 97.8 F 74 18 135/52 L 98 03/11/18 08:00 03/11/18 08:00 03/11/18 08:00 03/11/18 08:00 03/11/18 08:00 Narrative: Alert and oriented x1. Rate and rhythm regular. Trace LE edema. LS clear anteriorly. Abdomen soft, normoactive BS. DS: Diagnosis - Discharge Diagnosis (1) Altered mental state Status: Acute (2) DNR (do not resuscitate) Status: Acute (3) UTI (urinary tract infection) Status: Acute (4) History of CVA (cerebrovascular accident) Status: Acute Discharge Plan - Patient Discharge Instructions ACTIVITY: Continue current activity DIET: continue same diet - Follow up Plan Follow up with: Beth Salomon APRN [Nurse Practitioner] - 03/16/18 Disposition: er [facility] Home Medications: Home Medications Medication Instructions Recorded Confirmed Type escitalopram 20 mg tablet 20 mg PO DAILY tab 06/22/17 03/09/18 History furosemide 40 mg tablet 40 mg PO DAILY tab 06/22/17 03/09/18 History loratadine 10 mg tablet 10 mg PO DAILY 06/22/17 03/09/18 History nitroglycerin 0.4 mg sublingual 0.4 mg SUBLINGUAL Q5MINP PRN 06/22/17 03/08/18 History tablet sucralfate 1 gram tablet 1 g PO QID 06/22/17 03/09/18 History Bisoprolol Fumarate [Bisoprolol 5 mg PO DAILY 02/21/18 03/09/18 History 5mg Tablet] Diclofenac Sodium [Diclofenac Sod 1 applicatio TP TIDP PRN 02/21/18 03/09/18 History 100gm Topical Gel] Lisinopril [Lisinopril 5mg Tablet] 5 mg PO DAILY 02/21/18 03/09/18 History Polyethylene Glycol 3350 [Miralax 17 gm PO HS 02/21/18 03/09/18 History 17gm Packet] Acetaminophen 500 mg PO Q4HP PRN 03/09/18 03/09/18 History Albuterol Sulfate [Proair Hfa 2 puffs IH Q4HP PRN 03/09/18 03/09/18 History 90mcg/puff Inh] Calcium Carbonate [Tums 500mg 2 tab PO Q2HP PRN 03/09/18 03/09/18 History chewtab] LORazepam [Ativan] 0.5 mg PO DAILY 03/09/18 03/09/18 History LORazepam [Ativan] 1 mg PO HS 03/09/18 03/09/18 History Omeprazole [Omeprazole 40mg 40 mg PO DAILY 03/09/18 03/09/18 History Capsule] Prescriptions/Medication Reconciliation: New levoFLOXacin [Levaquin 500mg tab] 500 mg PO DAILY #10 tab Continue loratadine 10 mg tablet 10 mg PO DAILY furosemide 40 mg tablet 40 mg PO DAILY tab nitroglycerin 0.4 mg sublingual tablet 0.4 mg SUBLINGUAL Q5MINP PRN PRN Reason: Chest Pain sucralfate 1 gram tablet 1 g PO QID escitalopram 20 mg tablet 20 mg PO DAILY tab Lisinopril [Lisinopril 5mg Tablet] 5 mg PO DAILY Diclofenac Sodium [Diclofenac Sod 100gm Topical Gel] 1 applicatio TP TIDP PRN PRN Reason: PAIN/INFLAMMATION Bisoprolol Fumarate [Bisoprolol 5mg Tablet] 5 mg PO DAILY Albuterol Sulfate [Proair Hfa 90mcg/puff Inh] 2 puffs IH Q4HP PRN PRN Reason: Shortness Of Breath Or Wheezing Omeprazole [Omeprazole 40mg Capsule] 40 mg PO DAILY LORazepam [Ativan] 1 mg PO HS LORazepam [Ativan] 0.5 mg PO DAILY Calcium Carbonate [Tums 500mg chewtab] 2 tab PO Q2HP PRN PRN Reason: Heartburn Polyethylene Glycol 3350 [Miralax 17gm Packet] 17 gm PO HS Acetaminophen 500 mg PO Q4HP PRN PRN Reason: PAIN OR FEVER Changed Potassium Chloride [Micro-K 10mEq cap] 20 meq PO BID #60 capsule.er Discontinued LORazepam [Ativan 1mg tablet] 1 mg PO TIDP PRN #90 tab PRN Reason: NERVES Oxycodone HCl/Acetaminophen [Percocet 7.5/325mg tablet] 1 tab PO Q8 PRN 30 Days #90 tab PRN Reason: pain
[2018-03-11 08:20] LABS: Potassium 2.7 mmoL/L (3.5-5.1)
[2018-03-11 08:28] LABS: Basophils # 0.1 K/mm3 (0-0.2); Basophils % 1.1 % (0.1-2.0); Eosinophils # 0.4 K/mm3 (0.0-0.4); Eosinophils % 5.7 % (0.1-12.0); Hematocrit 39.5 % (37.0-47.0); Lymphocytes # 2.5 K/mm3 (0.7-4.5); Lymphocytes % 35.2 K/mm3 (10-50); Mean Corpuscular HGB Conc 30.5 g/dL (31.8-35.4); Mean Corpuscular Hemoglobin 30.5 pg (27.0-31.2); Mean Platelet Volume 9.2 fl (7.4-10.4); Monocytes # 0.9 K/mm3 (0.1-1.0); Monocytes % 12.3 % (1.7-9.3); Neutrophils # 3.3 K/mm3 (1.8-7.8); Neutrophils % 45.8 % (37.0-80.0); Platelet Count 226 K/mm3 (142-424); Red Blood Count 3.95 M/mm3 (4.20-5.40); Red Cell Distribution Width 15.7 % (11.5-17.5); White Blood Count 7.1 K/mm3 (4.8-10.8)
== END 2018-03-11 13:11 ==
LOC: 2ND 12:54 → ER 12:54 → 2ND 16:22
PROVIDERS: ADMIT Internal Medicine Adolescent Medicine; ATTEND Internal Medicine Adolescent Medicine

== ENCOUNTER 2018-03-22 23:43 | Inpatient (IN) ==
[2018-03-23 00:19] LABS: Appearance,Urine CLEAR (Clear); Bilirubin,Urine Negative (Negative); Blood, Urine 1+ (Negative); Color,Urine YELLOW (Yellow); Glucose,Urine (UA) Negative (Negative); Ketones,Urine Negative (Negative); Leukocyte Esterase,Urine Negative (Negative); Microscopic, Urine URINE MICROSCOPIC (MICROSCOPIC); PH,Urine 5.5 (5.0-8.5); Protein,Urine Negative (Negative); Specific Gravity, Urine 1.015 (1.005-1.030); Urobilinogen,Urine 0.2 EU/dl (0.2)
[2018-03-23 00:28] LABS: Basophils # 0.1 K/mm3 (0-0.2); Basophils % 0.4 % (0.1-2.0); Eosinophils # 0.2 K/mm3 (0.0-0.4); Eosinophils % 1.1 % (0.1-12.0); Hematocrit 42.3 % (37.0-47.0); Hemoglobin 13.2 g/dL (12.2-16.2); Lymphocytes # 2.9 K/mm3 (0.7-4.5); Lymphocytes % 18.3 K/mm3 (10-50); Mean Corpuscular HGB Conc 31.2 g/dL (31.8-35.4); Mean Corpuscular Hemoglobin 31.2 pg (27.0-31.2); Mean Corpuscular Volume 100.2 fl (81-99); Monocytes # 1.7 K/mm3 (0.1-1.0); Monocytes % 10.8 % (1.7-9.3); Neutrophils # 10.8 K/mm3 (1.8-7.8); Neutrophils % 69.3 % (37.0-80.0); Platelet Count 321 K/mm3 (142-424); Red Blood Count 4.22 M/mm3 (4.20-5.40); Red Cell Distribution Width 15.5 % (11.5-17.5); White Blood Count 15.6 K/mm3 (4.8-10.8)
--- NOTE | 2018-03-23 00:36 | Emergency Department Note ---
ED Disposition Clinical Impression: Arterial occlusion, lower extremity, Renal insufficiency, Pacemaker Chest pain Qualifiers: Chest pain type: precordial pain Qualified Code(s): R07.2 - Precordial pain Disposition: Admitted as Observation Condition on Discharge: Good Referrals: Henry Kim MD [Primary Care Provider] - - Critical Care Critical Care Time: No Attestation: On 03/22/18, the high probability of a clinically significant, sudden or life threatening deterioration of the following system(s) required my full and direct attention, intervention and personal management. The time I documented below is in addition to time spent performing reported procedures but includes the following listed in this critical care notation. Medical Decision Making - Medical Records Medical records reviewed: Yes: I reviewed the patient's medical records. - [place] Inquiry Pt receiving controlled substance: No Vital Signs: 03/22/18 23:43 03/23/18 01:37 Temperature 100.8 F H Temperature Source Rectal Pulse Rate [Right Radial] 78 87 Respiratory Rate 16 15 Blood Pressure [Right Arm] 124/47 L 134/63 Blood Pressure Mean [Right Arm] 72 86 02 Sat by Pulse Oximetry 95 100 - Lab Data Lab results reviewed: Yes: I reviewed the patient's lab results. Lab Results 03/23/18 00:10: WBC 15.6 H, RBC 4.22, Hgb 13.2, Hct 42.3, MCV 100.2 H, MCH 31.2, MCHC 31.2 L, RDW 15.5, Plt Count 321, MPV 9.0, Neut % (Auto) 69.3, Lymph % (Auto) 18.3, Edgar % (Auto) 10.8 H, Eos % (Auto) 1.1, Baso % (Auto) 0.4, Neut # (Auto) 10.8 H, Lymph # (Auto) 2.9, Edgar # (Auto) 1.7 H, Eos # (Auto) 0.2, Baso # (Auto) 0.1, Total Counted 100, Neutrophils % (Manual) 77 H, Lymphocytes % (Man ual) 18, Monocytes % (Manual) 5, Platelet Estimate Normal, Anisocytosis 1+, Target Cells 1+, Ovalocytes 1+, Acanthocytes (Spur) 1+ 03/23/18 00:10: ESR 36 H 03/23/18 00:10: Lactate 1.2 03/23/18 00:15: Urine Color Yellow, Urine Appearance Clear, Urine pH 5.5, Ur Specific [place] 1.015, Urine Protein Negative, Urine Glucose (UA) Negative, Urine Ketones Negative, Urine Blood 1+, Urine Nitrate Negative, Urine Bilirubin Negative, Urine Urobilinogen 0.2, Ur Leukocyte Esterase Negative, Urine RBC 3-5, Urine WBC Occasional, Ur Squamous Epith Cells Occasional, Urine Bacteria 1+ 03/23/18 00:54: Sodium 132 L, Potassium 5.0, Chloride 100, Carbon Dioxide 26, Anion Gap 11.0, BUN 30 H, Creatinine 1.04 H, Estimated Creat Clear 38, Estimated GFR 50 L, Est GFR ( Amer) 60, Glucose 113 H, Calcium 8.3 L, Total Bilirubin 0.5, AST 89 H, ALT 54, Alkaline Phosphatase 93, Troponin I < 0.02, C- Reactive Protein 12.5 H, Total Protein 6.8, Albumin 2.5 L, Globulin 4.3 H, Albumin/Globulin Ratio 0.6 L Result diagrams: 03/23/18 00:10 03/23/18 00:54 Orders (Tests/Meds): ED MEDICATIONS Generic Name Dose Route Start Last Admin Trade Name Freq PRN Reason Stop Dose Admin Heparin Sodium/Dextrose 500 mls @ 16 mls/hr 03/23/18 01:45 Heparin 25,000 Units In D5w 500ml Premix IV 04/22/18 01:44 .Q25H COMPA 800 UNITS/HR Miscellaneous 1 each 03/23/18 01:45 Heparin Drip Consult Request * 04/22/18 01:44 CONSULT PHARMACY [facility] Discontinued Medications Generic Name Dose Route Start Last Admin Trade Name Freq PRN Reason Stop Dose Admin Heparin Sodium (Porcine) 4,000 unit 03/23/18 01:32 Heparin Sodium 5,000 Units/Ml Vial IV 03/23/18 01:33 ONCE ONE Hydromorphone HCl 0.5 mg 03/23/18 01:31 03/23/18 01:34 Dilaudid 2mg/Ml Syringe IV 03/23/18 01:32 0.5 mg ONCE ONE Administration ORDERS Category Date Time Status XR chest portable Stat Exams 03/22/18 23:54 Taken PT/INR [Prothrombin Time INR] Stat Lab 03/23/18 00:54 Received Urinalysis and Microscopic Stat Lab 03/23/18 00:15 Ordered Blood Culture Stat Micro 03/23/18 00:54 Ordered - Radiology Data #1 Image(s): Chest Image Reviewed: Yes I reviewed the patient's radiology image Preliminary Findings: Normal/NAD - ECG Data Tracing #1 I reviewed this ECG and interpreted as documented below: Arrhythmias present: other (paced) - Physician Consults Physician Consulted: henrry Reason -: Admission Chest Pain HPI - General Chief Complaint: Chest Pain Stated Complaint: Chest Pain Time Seen by Provider: 03/22/18 23:50 Mode of Arrival: EMS Source of Information: Patient, EMS, Medical Record Limitations: Physical Limitations Description of Symptoms (Recalled from ER Triage Doc. by RN): chest pain that began at 2320 tonight. 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 pt c/o chest pain that radiates from midsternal to left chest and down left arm. - History of Present Illness HPI narrative: pt from f with acute onset of lt chest pain with rad to lt upper ext and positive relief with ntg - she had recent admit for uti and is abx- she also reports progressive pain to rt lower ext - hx of pacemaker MD complaint: chest pain indicative of cardiac Onset (ago): hour(s) Duration: now resolved Activity at onset: during rest Pain location: left chest Severity: moderate Quality: sharp Pain radiation: LUE Relieving factors: nitroglycerin Risk Factors for CAD: Family Hx of CAD Treatments prior to or on arrival for Cardiac Chest Pain: aspirin, nitroglycerin - DONNY Score Non-Stemi Age of patient: 65 yrs or more Number of risk factors for CAD: Presence of less than 3 Prior coronary artery stenosis(seen in coronary angiography): Less than 50% ST-Segment deviation on ECG (more than 1 min): Absent Prior aspirin intake: ASA intake in the last 7 days Severe anginal chest pain: No or one episode in last 24 hours Elevated cardiac markers(CK-MB or troponin): Absent Non-Stemi Risk Score: 2 - Related Data On Oral Contraceptives: No Home Medications Medication Instructions Recorded Confirmed escitalopram 20 mg tablet 20 mg PO DAILY tab 06/22/17 03/23/18 furosemide 40 mg tablet 40 mg PO DAILY tab 06/22/17 03/23/18 loratadine 10 mg tablet 10 mg PO DAILY 06/22/17 03/23/18 nitroglycerin 0.4 mg sublingual 0.4 mg SUBLINGUAL Q5MINP PRN 06/22/17 03/23/18 tablet sucralfate 1 gram tablet 1 g PO QID 06/22/17 03/23/18 Bisoprolol Fumarate [Bisoprolol 5 mg PO DAILY 02/21/18 03/23/18 5mg Tablet] Diclofenac Sodium [Diclofenac Sod 1 applicatio TP TIDP PRN 02/21/18 03/23/18 100gm Topical Gel] Lisinopril [Lisinopril 5mg Tablet] 5 mg PO DAILY 02/21/18 03/23/18 Polyethylene Glycol 3350 [Miralax 17 gm PO HS 02/21/18 03/23/18 17gm Packet] Acetaminophen 500 mg PO Q4HP PRN 03/09/18 03/23/18 Albuterol Sulfate [Proair Hfa 2 puffs IH Q4HP PRN 03/09/18 03/23/18 90mcg/puff Inh] Calcium Carbonate [Tums 500mg 2 tab PO Q2HP PRN 03/09/18 03/23/18 chewtab] LORazepam [Ativan] 0.5 mg PO DAILY 03/09/18 03/23/18 LORazepam [Ativan] 1 mg PO HS 03/09/18 03/23/18 Omeprazole [Omeprazole 40mg 40 mg PO DAILY 03/09/18 03/23/18 Capsule] Gabapentin [Gabapentin 100mg Cap] 100 mg PO BID 03/22/18 03/23/18 Loratadine [Claritin] 10 mg PO DAILY 03/22/18 03/23/18 Oxycodone HCl/Acetaminophen 1 each PO Q8HP PRN 03/22/18 03/23/18 [Percocet 7.5-325 mg Tablet] Pantoprazole Sodium [Pantoprazole 40 mg PO DAILY 03/22/18 03/23/18 20mg Tab] Saccharomyces Boulardii [Florastor] 250 mg PO DAILY 03/22/18 03/23/18 levoFLOXacin [Levaquin 500mg 500 mg PO DAILY 03/23/18 03/23/18 tab] Previous Rx's Medication Instructions Recorded Potassium Chloride [Micro-K 10mEq 20 meq PO BID #60 capsule.er 03/11/18 cap] Allergies Allergy/AdvReac Type Severity Reaction Status Date / Time levofloxacin [From Levaquin] Allergy Intermediate Hallucinati Verified 03/22/18 23:57 ng Tetanus Vaccines and Toxoid Allergy Mild Rash Verified 03/22/18 23:57 cephalexin [From KEFLEX] Allergy Unknown NA-NAUSEA/V Verified 03/22/18 23:57 OMITING ciprofloxacin [From CIPRO] Allergy Unknown NA-NAUSEA/V Verified 03/22/18 23:57 OMITING codeine [CODEINE] Allergy Unknown NA-NAUSEA/V Verified 03/22/18 23:57 OMITING fexofenadine [From TYLER] Allergy Unknown NA-NAUSEA/V Verified 03/22/18 23:57 OMITING morphine [MORPHINE] Allergy Unknown CONFUSION Verified 03/22/18 23:57 Penicillins [PENICILLINS] Allergy Unknown I-HIVES Verified 03/22/18 23:57 promethazine [From PHENERGAN] Allergy Unknown Verified 03/22/18 23:57 Sulfa (Sulfonamide Allergy Unknown NA-NAUSEA/V Verified 03/22/18 23:57 Antibiotics) OMITING [SULFA (SULFONAMIDE ANTIBIOTICS)] H History I have reviewed the patient's past medical history: Yes Medical History: Reports:: Asthma, Atrial Fibrillation, Cancer (lymphoma), Cerebrovascular Accident, Hyperlipidemia, Hypertension, Internal Pacemaker, Myocardial Infarction Denies:: Diabetes Mellitus Type 1, Diabetes Mellitus Type 2 Other Medical History: Reports: Arthritis Comment: Long-term benzodiazepine and opiate use Laterality Cases: Left: Arthroscopy Shoulder, Bilateral: Arthroscopy Knee Other Surgeries: Yes: Hysterectomy-Partial, Pacemaker, Splenectomy, Other (broken back, cholecystectomy, shoulders) Amputation: No Fractures: No - Social History Smoking Status: Former smoker Alcohol Intake: never Alcohol Intake Frequency:: other Occupational Status: retired Housing: house Household Members: family, children - Psychiatric History Expresses thoughts of harming self/others: None Suicide Plan Description: No Plan Family Hx:: Coronary Artery Disease ROS Obtained: Yes All systems reviewed & no additional complaints - Constitutional Constitutional: Denies fever(s) - Eyes Eyes: Denies change in vision - ENT Ears, Nose, Mouth, and Throat: Denies sore throat - Cardiovascular Cardiovascular: Reports chest pain, Denies dyspnea - Respiratory Respiratory: No cough - Gastrointestinal Gastrointestingal: Denies: abdominal pain - Genitourinary Female Genitourinary: Denies hematuria - Musculoskeletal Musculoskeletal: Denies joint pain, Denies joint swelling - Integumentary/Breasts Skin/Breast: Denies rash - Neurologic Neurologic: Denies seizure-like activity Physical Exam - General General appearance: in no apparent distress, cachectic - Head Head exam: normocephalic - Eye Eye exam: Present: PERRL, EOMI. Absent: scleral icterus - ENT ENT exam: Present: mucous membranes dry - Neck Neck exam: Present: trachea midline - Respiratory Respiratory exam: Present: other (dec bs bilat ). Absent: respiratory distress - Cardiovascular Cardiovascular exam: Present: regular rate, systolic murmur, +S4, Pacemaker w/paced rhythm - Expanded Lower Extremity Exam Right Lower leg exam: Present: ecchymosis, other (dec pulse and cold ) - Neurological Exam Neurological exam: Present: alert, oriented X3, CN II-XII intact - Psychiatric Psychiatric exam: Present: normal affect - Skin Skin exam: Absent: rash
[2018-03-23 01:17] LABS: Alanine Aminotransferase 54 U/L (12-78); Albumin Level 2.5 gm/dL (3.4-5.0); Albumin/Globulin Ratio 0.6 (1.1-1.8); Alkaline Phosphatase 93 U/L (46-116); Aspartate Amino Transferase 89 U/L (15-37); Bilirubin,Total 0.5 mg/dL (0.2-1.0); Blood Urea Nitrogen 30 mg/dL (7-18); Calcium 8.3 mg/dL (8.5-10.1); Carbon Dioxide 26 mmol/L (21.0-32.0); Chloride 100 mmol/L (98-107); Globulin 4.3 gm/dl (1.3-3.2); Glucose 113 mg/dL (74-106); Sodium 132 mmol/L (136-145); Total Protein,Serum 6.8 gm/dL (6.4-8.2)
[2018-03-23 01:21] LABS: C-Reactive Protein 12.5 mg/L (0.0-0.9)
[2018-03-23 01:30] LABS: Bacteria,Urine 1+ /lpf; Squamous Epithelial Cell,Urine Occasional #/hpf (0-5); WBC,Urine Occasional #/hpf (0-3)
[2018-03-23 01:34] LABS: Anisocytosis 1+; Lymphocytes % 18 % (10-50); Monocytes % 5 % (2-9); Neutrophils % 77 % (42-76); Ovalocytes 1+; Target Cells 1+; Total Cells Counted 100
[2018-03-23 01:43] LABS: INR 0.99 (0.9-1.1); Prothrombin Time 10.2 seconds (9.4-11.8)
[2018-03-23 05:59] LABS: Basophils # 0.1 K/mm3 (0-0.2); Basophils % 0.3 % (0.1-2.0); Eosinophils # 0.1 K/mm3 (0.0-0.4); Eosinophils % 0.5 % (0.1-12.0); Hematocrit 39.3 % (37.0-47.0); Hemoglobin 12.5 g/dL (12.2-16.2); Lymphocytes # 2.1 K/mm3 (0.7-4.5); Lymphocytes % 13.7 K/mm3 (10-50); Mean Corpuscular HGB Conc 31.8 g/dL (31.8-35.4); Mean Corpuscular Hemoglobin 31.7 pg (27.0-31.2); Mean Corpuscular Volume 99.5 fl (81-99); Mean Platelet Volume 8.3 fl (7.4-10.4); Monocytes # 1.8 K/mm3 (0.1-1.0); Monocytes % 11.8 % (1.7-9.3); Neutrophils # 11.1 K/mm3 (1.8-7.8); Neutrophils % 73.7 % (37.0-80.0); Platelet Count 234 K/mm3 (142-424); Red Blood Count 3.95 M/mm3 (4.20-5.40); Red Cell Distribution Width 15.5 % (11.5-17.5); White Blood Count 15.1 K/mm3 (4.8-10.8)
[2018-03-23 06:24] LABS: Anion Gap 11.8 mEq/L (5-15); Blood Urea Nitrogen 29 mg/dL (7-18); Calcium 8.2 mg/dL (8.5-10.1); Carbon Dioxide 22 mmol/L (21.0-32.0); Chloride 102 mmol/L (98-107); Glucose 109 mg/dL (74-106); Potassium 4.8 mmoL/L (3.5-5.1); Sodium 131 mmol/L (136-145)
--- NOTE | 2018-03-23 07:18 | History & Physical Report ---
*Admission Date: 03/23/18 *Chief complaint: Chest pain *History of present illness: 87-year-old white female with recently complex medical history including urinary tract infection with bacteremia, with significant comorbidities requiring transfer to long-term care facility for ongoing therapy and nursing care. Had a readmission 2 weeks ago because of mental status changes that was again because of an repeat urinary tract infection, this time without bacteremia, [facility] to complain of chest pain with radiation into the left arm. She was given nitroglycerin which failed to treat her symptoms adequately and she was transferred to the emergency department. In the emergency department here she was noted to have a low-grade fever. Also noted to have significant evidence of vascular disease in the right leg with evidence of arterial insufficiency. Admitted to hospital for further diagnostic testing and vascular/cardiology consultation. This morning she complains of pain in her right leg. Denies further chest pain. [facility] History I have reviewed the patient's past medical history: Yes Medical History: Reports:: Asthma, Atrial Fibrillation, Cancer (lymphoma), Cerebrovascular Accident, Hyperlipidemia, Hypertension, Internal Pacemaker, Myocardial Infarction Denies:: Diabetes Mellitus Type 1, Diabetes Mellitus Type 2 Other Medical History: Reports: Arthritis Laterality Cases: Left: Arthroscopy Shoulder, Bilateral: Arthroscopy Knee Other Surgeries: Yes: Hysterectomy-Partial, Pacemaker, Splenectomy, Other (broken back, cholecystectomy, shoulders) Amputation: No Fractures: No - *Social History Smoking Status: Former smoker Alcohol Intake: former Alcohol Intake Frequency:: other Occupational Status: retired Housing: house Household Members: family, children - Psychiatric History Expresses thoughts of harming self/others: None Suicide Plan Description: No Plan *Family Hx:: Coronary Artery Disease Review of Systems - Review of Systems Review of systems:: unable to obtain (Patient with moderate dementia. See HPI) - *Neurologic Denies seizure-like activity Meds Home Medications Medication Instructions Recorded Confirmed Type escitalopram 20 mg tablet 20 mg PO DAILY tab 06/22/17 03/23/18 History loratadine 10 mg tablet 10 mg PO DAILY 06/22/17 03/23/18 History nitroglycerin 0.4 mg sublingual 0.4 mg SUBLINGUAL Q5MINP PRN 06/22/17 03/23/18 History tablet sucralfate 1 gram tablet 1 g PO QID 06/22/17 03/23/18 History Bisoprolol Fumarate [Bisoprolol 5 mg PO DAILY 02/21/18 03/23/18 History 5mg Tablet] Diclofenac Sodium [Diclofenac Sod 1 applicatio TP TIDP PRN 02/21/18 03/23/18 History 100gm Topical Gel] Lisinopril [Lisinopril 5mg Tablet] 5 mg PO DAILY 02/21/18 03/23/18 History Polyethylene Glycol 3350 [Miralax 17 gm PO HS 02/21/18 03/23/18 History 17gm Packet] Acetaminophen 500 mg PO Q4HP PRN 03/09/18 03/23/18 History Albuterol Sulfate [Proair Hfa 2 puffs IH Q4HP PRN 03/09/18 03/23/18 History 90mcg/puff Inh] Calcium Carbonate [Tums 500mg 2 tab PO Q2HP PRN 03/09/18 03/23/18 History chewtab] LORazepam [Ativan] 0.5 mg PO DAILY 03/09/18 03/23/18 History LORazepam [Ativan] 1 mg PO HS 03/09/18 03/23/18 History Gabapentin [Gabapentin 100mg Cap] 100 mg PO BID 03/22/18 03/23/18 History Loratadine [Claritin] 10 mg PO DAILY 03/22/18 03/23/18 History Pantoprazole Sodium [Pantoprazole 40 mg PO DAILY 03/22/18 03/23/18 History 20mg Tab] levoFLOXacin [Levaquin 500mg 500 mg PO DAILY 03/23/18 03/23/18 History tab] Allergies Allergy/AdvReac Type Severity Reaction Status Date / Time Tetanus Vaccines and Toxoid Allergy Mild Rash Verified 03/22/18 23:57 cephalexin [From KEFLEX] Allergy Unknown NA-NAUSEA/V Verified 03/22/18 23:57 OMITING ciprofloxacin [From CIPRO] Allergy Unknown NA-NAUSEA/V Verified 03/22/18 23:57 OMITING codeine [CODEINE] Allergy Unknown NA-NAUSEA/V Verified 03/22/18 23:57 OMITING fexofenadine [From TYLER] Allergy Unknown NA-NAUSEA/V Verified 03/22/18 23:57 OMITING morphine [MORPHINE] Allergy Unknown CONFUSION Verified 03/22/18 23:57 Penicillins [PENICILLINS] Allergy Unknown I-HIVES Verified 03/22/18 23:57 promethazine [From PHENERGAN] Allergy Unknown Verified 03/22/18 23:57 Sulfa (Sulfonamide Allergy Unknown NA-NAUSEA/V Verified 03/22/18 23:57 Antibiotics) OMITING [SULFA (SULFONAMIDE ANTIBIOTICS)] Exam Vital signs and Labs for Last 24 Hours: Temp Pulse Resp BP Pulse Ox 97.8 F 79 20 139/60 99 03/23/18 03:52 03/23/18 04:00 03/23/18 03:52 03/23/18 03:52 03/23/18 03:52 Laboratory Results - last 24 hr 03/23/18 00:10: WBC 15.6 H, RBC 4.22, Hgb 13.2, Hct 42.3, MCV 100.2 H, MCH 31.2, MCHC 31.2 L, RDW 15.5, Plt Count 321, MPV 9.0, Neut % (Auto) 69.3, Lymph % (Auto) 18.3, [place] % (Auto) 10.8 H, Eos % (Auto) 1.1, Baso % (Auto) 0.4, Neut # (Auto) 10.8 H, Lymph # (Auto) 2.9, [place] # (Auto) 1.7 H, Eos # (Auto) 0.2, Baso # (Auto) 0.1, Total Counted 100, Neutrophils % (Manual) 77 H, Lymphocytes % (Manual) 18, Monocytes % (Manual) 5, Platelet Estimate Normal, Anisocytosis 1+, Target Cells 1+, Ovalocytes 1+, Acanthocytes (Spur) 1+ 03/23/18 00:10: ESR 36 H 03/23/18 00:10: Lactate 1.2 03/23/18 00:15: Urine Color Yellow, Urine Appearance Clear, Urine pH 5.5, Ur Specific [place] 1.015, Urine Protein Negative, Urine Glucose (UA) Negative, Urine Ketones Negative, Urine Blood 1+, Urine Nitrate Negative, Urine Bilirubin Negative, Urine Urobilinogen 0.2, Ur Leukocyte Esterase Negative, Urine RBC 3-5, Urine WBC Occasional, Ur Squamous Epith Cells Occasional, Urine Bacteria 1+ 03/23/18 00:54: Sodium 132 L, Potassium 5.0, Chloride 100, Carbon Dioxide 26, Anion Gap 11.0, BUN 30 H, Creatinine 1.04 H, Estimated Creat Clear 38, Estimated GFR 50 L, Est GFR ( Amer) 60, Glucose 113 H, Calcium 8.3 L, Total Cr irubin 0.5, AST 89 H, ALT 54, Alkaline Phosphatase 93, Troponin I < 0.02, C- Reactive Protein 12.5 H, Total Protein 6.8, Albumin 2.5 L, Globulin 4.3 H, Albumin/Globulin Ratio 0.6 L 03/23/18 00:54: PT 10.2, INR 0.99 03/23/18 05:41: WBC 15.1 H, RBC 3.95 L, Hgb 12.5, Hct 39.3, MCV 99.5 H, MCH 31.7 H, MCHC 31.8, RDW 15.5, Plt Count 234 D, MPV 8.3, Neut % (Auto) 73.7, Lymph % (Auto) 13.7, [place] % (Auto) 11.8 H, Eos % (Auto) 0.5, Baso % (Auto) 0.3, Neut # (Auto) 11.1 H, Lymph # (Auto) 2.1, [place] # (Auto) 1.8 H, Eos # (Auto) 0.1, Baso # (Auto) 0.1 03/23/18 05:41: Sodium 131 L, Potassium 4.8, Chloride 102, Carbon Dioxide 22, Anion Gap 11.8, BUN 29 H, Creatinine 0.96, Estimated Creat Clear 38, Estimated GFR 55 L, Est GFR ( Amer) 66, Glucose 109 H, Calcium 8.2 L, Troponin I < 0.02 I & O for Last 24 hours: Intake & Output 03/20/18 03/21/18 03/22/18 03/23/18 11:59 11:59 11:59 11:59 Intake Total 260 / 260 Balance 260 / 260 Weight 139 lb 5.984 oz Narrative: Patient is alert, pleasant and responds to commands. Is demented in regards to place and time this morning. Oropharynx dry but clear. No JVD. Lungs have good air movement. Heart rate regular. Soft flow murmur. Abdomen soft and nontender. Extremities without edema. Right extremity is markedly abnormal with cool extremity below right knee, no pulses palpable. Pain with movement of the leg below the knee. With movement of the ankle. Assessment and Plan (1) Fever Current visit: Yes Status: Acute Category: Medical Code(s): R50.9 - Fever, unspecified Questionable etiology of fever, possibly from metabolic issues from arterial occlusion. Check urine culture and blood culture. (2) Arterial occlusion, lower extremity Current visit: Yes Status: Acute Category: Medical Code(s): I70.209 - Unspecified atherosclerosis of [place] arteries of extremities, unspecified extremity Cardiology evaluation to assess of revascularization as an option for this lady. Significant exam change and very ominous prognosis. (3) Chest pain Current visit: Yes Status: Acute Qualifiers: Chest pain type: precordial pain Qualified Code(s): R07.2 - Precordial pain Category: Medical Code(s): R07.9 - Chest pain, unspecified Troponin negative. (4) Renal insufficiency Current visit: Yes Status: Acute Category: Medical Code(s): N28.9 - Disorder of kidney and ureter, unspecified Continue to follow. Low-dose fluids. Watch labs tomorrow
--- NOTE | 2018-03-23 07:44 | Consult Report ---
History of Present Illness Consult date: 03/23/18 Requesting physician: Henry Kim Chief complaint: chest pain, right leg pain Additional Medical History:: 1. Moderate to severe AI by echo A. Echo, 03/2017, severe AI, moderate MR/TR with RVSP of 60 mm Hg. EF 55% wi th no segmental wall motion abnormalities. 2. SSS A. PPM placed, 11/2016 3. Chronic A. fib, not anticoagulation candidate due to history of recurrent falls. 4. History of DVT in 5. Previous remote IA A. Oswaldo myoview, no ischemia, 10/2016, with normal LVEF. 6. History of Depression 7. History of Non-Hodgkins Lymphoma 8. Hypertension 9. Hyperlipidemia 10. History of asthma 11. PAD A. RLE with acute arterial occlusion, 03/2018 History of present illness: 87-year-old white female with recently complex medical history including urinary tract infection with bacteremia, with significant comorbidities requiring transfer to long-term care facility for ongoing therapy and nursing care. Had a readmission 2 weeks ago because of mental status changes that was again because of an repeat urinary tract infection, this time without bacteremia, who yesterday evening at the [facility] began to complain of chest pain with radiation into the left arm. She was given nitroglycerin which failed to treat her symptoms adequately and she was transferred to the emergency department. In the emergency department here she was noted to have a low-grade fever. Also not ed to have significant evidence of vascular disease in the right leg with evidence of arterial insufficiency. Admitted to hospital for further diagnostic testing and vascular/cardiology consultation. This morning she complains of pain in her right leg. Denies further chest pain. The above per Dr. Kim. Poor historian but is aware she is in the hospital and does relate right foot pain. EKG is a.fib with intermittent V. pacing. Troponins normal X2. [facility] History Medical History: Reports:: Asthma, Atrial Fibrillation, Cancer (lymphoma), Cerebrovascular Accident, Hyperlipidemia, Hypertension, Internal Pacemaker, Myocardial Infarction Denies:: Diabetes Mellitus Type 1, Diabetes Mellitus Type 2 Other Medical History: Reports: Arthritis Laterality Cases: Left: Arthroscopy Shoulder, Bilateral: Arthroscopy Knee Other Surgeries: Yes: Hysterectomy-Partial, Pacemaker, Splenectomy, Other (broken back, cholecystectomy, shoulders) Amputation: No Fractures: No - *Social History Smoking Status: Former smoker Alcohol Intake: former Alcohol Intake Frequency:: other Occupational Status: retired Housing: house Household Members: family, children - Psychiatric History Expresses thoughts of harming self/others: None Suicide Plan Description: No Plan *Family Hx:: Coronary Artery Disease Meds Home Medications Medication Instructions Recorded Confirmed Type escitalopram 20 mg tablet 20 mg PO DAILY tab 06/22/17 03/23/18 History nitroglycerin 0.4 mg sublingual 0.4 mg SUBLINGUAL Q5MINP PRN 06/22/17 03/23/18 History tablet sucralfate 1 gram tablet 1 g PO QID 06/22/17 03/23/18 History Bisoprolol Fumarate [Bisoprolol 5 mg PO DAILY 02/21/18 03/23/18 History 5mg Tablet] Diclofenac Sodium [Diclofenac Sod 1 applicatio TP TIDP PRN 02/21/18 03/23/18 History 100gm Topical Gel] Lisinopril [Lisinopril 5mg Tablet] 5 mg PO DAILY 02/21/18 03/23/18 History Polyethylene Glycol 3350 [Miralax 17 gm PO HS 02/21/18 03/23/18 History 17gm Packet] Acetaminophen 500 mg PO Q4HP PRN 03/09/18 03/23/18 History Albuterol Sulfate [Proair Hfa 2 puffs IH Q4HP PRN 03/09/18 03/23/18 History 90mcg/puff Inh] Calcium Carbonate [Tums 500mg 2 tab PO Q2HP PRN 03/09/18 03/23/18 History chewtab] LORazepam [Ativan] 0.5 mg PO DAILY 03/09/18 03/23/18 History LORazepam [Ativan] 1 mg PO HS 03/09/18 03/23/18 History Gabapentin [Gabapentin 100mg Cap] 100 mg PO BID 03/22/18 03/23/18 History Loratadine [Claritin] 10 mg PO DAILY 03/22/18 03/23/18 History Pantoprazole Sodium [Pantoprazole 40 mg PO DAILY 03/22/18 03/23/18 History 20mg Tab] Furosemide [Furosemide 40MG tAB] 40 mg PO DAILY 03/23/18 03/23/18 History Allergies Allergy/AdvReac Type Severity Reaction Status Date / Time Tetanus Vaccines and Toxoid Allergy Mild Rash Verified 03/22/18 23:57 cephalexin [From KEFLEX] Allergy Unknown NA-NAUSEA/V Verified 03/22/18 23:57 OMITING ciprofloxacin [From CIPRO] Allergy Unknown NA-NAUSEA/V Verified 03/22/18 23:57 OMITING codeine [CODEINE] Allergy Unknown NA-NAUSEA/V Verified 03/22/18 23:57 OMITING fexofenadine [From TYLER] Allergy Unknown NA-NAUSEA/V Verified 03/22/18 23:57 OMITING morphine [MORPHINE] Allergy Unknown CONFUSION Verified 03/22/18 23:57 Penicillins [PENICILLINS] Allergy Unknown I-HIVES Verified 03/22/18 23:57 promethazine [From PHENERGAN] Allergy Unknown Verified 03/22/18 23:57 Sulfa (Sulfonamide Allergy Unknown NA-NAUSEA/V Verified 03/22/18 23:57 Antibiotics) OMITING [SULFA (SULFONAMIDE ANTIBIOTICS)] Review of Systems - *Cardiovascular Reports chest pain, Reports shortness of breath with activity - *Respiratory Reports shortness of breath with activity - *Gastrointestinal Denies abdominal pain - *Musculoskeletal Comments: right foot pain - *Neurologic Denies seizure-like activity Exam Vital signs and Labs for Last 24 Hours: Temp Pulse Resp BP Pulse Ox 97.6 F 76 16 105/50 L 98 03/23/18 07:39 03/23/18 07:39 03/23/18 07:39 03/23/18 07:39 03/23/18 07:39 Laboratory Results - last 24 hr 03/23/18 00:10: WBC 15.6 H, RBC 4.22, Hgb 13.2, Hct 42.3, MCV 100.2 H, MCH 31.2, MCHC 31.2 L, RDW 15.5, Plt Count 321, MPV 9.0, Neut % (Auto) 69.3, Lymph % (Auto) 18.3, [place] % (Auto) 10.8 H, Eos % (Auto) 1.1, Baso % (Auto) 0.4, Neut # (Auto) 10.8 H, Lymph # (Auto) 2.9, [place] # (Auto) 1.7 H, Eos # (Auto) 0.2, Baso # (Auto) 0.1, Total Counted 100, Neutrophils % (Manual) 77 H, Lymphocytes % (Manual) 18, Monocytes % (Manual) 5, Platelet Estimate Normal, Anisocytosis 1+, Target Cells 1+, Ovalocytes 1+, Acanthocytes (Spur) 1+ 03/23/18 00:10: ESR 36 H 03/23/18 00:10: Lactate 1.2 03/23/18 00:15: Urine Color Yellow, Urine Appearance Clear, Urine pH 5.5, Ur Specific [place] 1.015, Urine Protein Negative, Urine Glucose (UA) Negative, Urine Ketones Negative, Urine Blood 1+, Urine Nitrate Negative, Urine Bilirubin Negative, Urine Urobilinogen 0.2, Ur Leukocyte Esterase Negative, Urine RBC 3-5, Urine WBC Occasional, Ur Squamous Epith Cells Occasional, Urine Bacteria 1+ 03/23/18 00:54: Sodium 132 L, Potassium 5.0, Chloride 100, Carbon Dioxide 26, Anion Gap 11.0, BUN 30 H, Creatinine 1.04 H, Estimated Creat Clear 38, Estimated GFR 50 L, Est GFR ( Amer) 60, Glucose 113 H, Calcium 8.3 L, Total Bilirubin 0.5, AST 89 H, ALT 54, Alkaline Phosphatase 93, Troponin I < 0.02, C- Reactive Protein 12.5 H, Total Protein 6.8, Albumin 2.5 L, Globulin 4.3 H, Albumin/Globulin Ratio 0.6 L 03/23/18 00:54: PT 10.2, INR 0.99 03/23/18 05:41: WBC 15.1 H, RBC 3.95 L, Hgb 12.5, Hct 39.3, MCV 99.5 H, MCH 31.7 H, MCHC 31.8, RDW 15.5, Plt Count 234 D, MPV 8.3, Neut % (Auto) 73.7, Lymph % (Auto) 13.7, [place] % (Auto) 11.8 H, Eos % (Auto) 0.5, Baso % (Auto) 0.3, Neut # (Auto) 11.1 H, Lymph # (Auto) 2.1, [place] # (Auto) 1.8 H, Eos # (Auto) 0.1, Baso # (Auto) 0.1 03/23/18 05:41: Sodium 131 L, Potassium 4.8, Chloride 102, Carbon Dioxide 22, Anion Gap 11.8, BUN 29 H, Creatinine 0.96, Estimated Creat Clear 38, Estimated GFR 55 L, Est GFR ( Amer) 66, Glucose 109 H, Calcium 8.2 L, Troponin I < 0.02 I & O for Last 24 hours: Intake & Output 03/20/18 03/21/18 03/22/18 03/23/18 11:59 11:59 11:59 11:59 Intake Total 260 / 260 Balance 260 / 260 Weight 139 lb 5.984 oz - *Routine HEENT Exam Head: Present: normocephalic Eye: Present: EOMI, PERRL ENT: Present: mucous membranes moist - *Routine Neck Exam Present: supple. Absent: JVD, carotid bruit - *Routine Respiratory Exam Present: CTA bilaterally, rhonchi. Absent: accessory muscle use, rales, wheezes - *Routine Cardiovascular Exam Present: RRR, murmur, irregular rhythm, irregularly irregular. Absent: gallop, rubs - *Routine Abdominal Exam Present: soft. Absent: tenderness, distended, guarding - *Routine Extremities Exam Present: extremity cold to touch. Absent: edema, calf tenderness Comments: RLE cold to touch from lower calf down with unappreciable pulse. Some healing ulcers of toes noted. Right foot is blue in color. LLE is warm with palpable pulse. - *Routine Neurological Exam Present: alert, oriented X3, moving all extremities Assessment and Plan (1) Fever Current visit: Yes Status: Acute Category: Medical Code(s): R50.9 - Fever, unspecified (2) Arterial occlusion, lower extremity Current visit: Yes Status: Acute Category: Medical Code(s): I70.209 - Unspecified atherosclerosis of [place] arteries of extremities, unspecified extremity (3) Chest pain Current visit: Yes Status: Acute Qualifiers: Chest pain type: precordial pain Qualified Code(s): R07.2 - Precordial pain Category: Medical Code(s): R07.9 - Chest pain, unspecified (4) Renal insufficiency Current visit: Yes Status: Acute Category: Medical Code(s): N28.9 - Disorder of kidney and ureter, unspecified (5) Aortic regurgitation Current visit: Yes Status: Acute Category: Medical Code(s): I35.1 - Nonrheumatic aortic (valve) insufficiency (6) Mitral regurgitation Current visit: Yes Status: Acute Category: Medical Code(s): I34.0 - Nonrheumatic mitral (valve) insufficiency (7) Cardiomyopathy Current visit: Yes Status: Acute Category: Medical Code(s): I42.9 - Cardiomyopathy, unspecified - Assessment and plan all Dx Assessment and Plan for all problems:: 1. Plan to proceed with RLE arterial runoff and possible intervention this AM. Will plan to stick the left femoral artery. 2. Continue heparin gtt. 3. Further recommendations after above. 4. No further work up of chest pain at this time due to normal troponins and resolution of symptoms. Pt is comfortable lieing flat in bed.
[2018-03-23 13:25] LABS: ABG Base Excess -6.3 mmol/L (-2.4-2.3); ABG HCO3 19.2 mmhg (22.0-26.0); ABG Oxygen Saturation 99 % (90-100); ABG PCO2 35.2 mmhg (35.0-45.0); ABG PH 7.36 mmol/L (7.35-7.45); ABG PO2 138.8 mmhg (80-100); ABG TCO2 20.3 mmhg (23-27)
[2018-03-23 13:26] LABS: Allen's Test acceptable
--- NOTE | 2018-03-24 08:36 | Progress Note ---
Internal Medicine - PN: Subj *Date: 03/24/18 *Time: 08:34 Interval history: Patient underwent successful stenting of her right arterial lower extremity system. Clinically has vastly improved with improved warmth to the right leg. She this morning also stating "I feel much better than yesterday." Exam Vital signs and Labs for Last 24 Hours: Temp Pulse Resp BP Pulse Ox 98.3 F 83 16 100/48 L 89 L 03/24/18 08:00 03/24/18 08:00 03/24/18 08:00 03/24/18 08:00 03/24/18 08:00 Laboratory Results - last 24 hr 03/23/18 07:57: APTT 120.3 H* 03/23/18 10:56: Activated Clotting Time 257 H* 03/23/18 12:59: Specimen Source l radial, O2 % 4lpm, ABG pH 7.36, ABG pCO2 35.2, ABG pO2 138.8 H, ABG HCO3 19.2 L, ABG Total CO2 20.3 L, ABG O2 Saturation 99, ABG Base Excess -6.3 L, Ramon Test acceptable I & O for Last 24 hours: Intake & Output 03/21/18 03/22/18 03/23/18 03/24/18 11:59 11:59 11:59 11:59 Intake Total 260 / 260 1933 / 1933 Output Total 151 / 151 Balance 260 / 260 1782 / 1782 Weight 139 lb 5.984 oz Narrative: Patient is more alert. Pleasant. A little bit more talkative. Heart rate is regular. Lungs have some rhonchi but fairly good air entry bilaterally. Abdomen is soft. Leg is much improved. [place], well-perfused. Diminished pulses but excellent capillary refill. Assessment and Plan (1) Fever Current visit: Yes Status: Acute Category: Medical Code(s): R50.9 - Fever, unspecified Culture results have been negative, fever curve has improved. Await cultures 1 more day. (2) Arterial occlusion, lower extremity Current visit: Yes Status: Acute Category: Medical Code(s): I70.209 - Unspecified atherosclerosis of [place] arteries of extremities, unspecified extremity Resolved post stenting. (3) Chest pain Current visit: Yes Status: Acute Qualifiers: Chest pain type: precordial pain Qualified Code(s): R07.2 - Precordial pain Category: Medical Code(s): R07.9 - Chest pain, unspecified (4) Renal insufficiency Current visit: Yes Status: Acute Category: Medical Code(s): N28.9 - Disorder of kidney and ureter, unspecified Follow labs closely tomorrow. (5) Aortic regurgitation Current visit: Yes Status: Acute Category: Medical Code(s): I35.1 - Nonrheumatic aortic (valve) insufficiency (6) Mitral regurgitation Current visit: Yes Status: Acute Category: Medical Code(s): I34.0 - Nonrheumatic mitral (valve) insufficiency (7) Cardiomyopathy Current visit: Yes Status: Acute Category: Medical Code(s): I42.9 - Cardiomyopathy, unspecified Overall patient's prognosis is fairly poor, significant complications the last 6 or 7 weeks from her overall poor status. She is a good candidate for hospice care. This will be brought up with the family.
--- NOTE | 2018-03-24 09:22 | Progress Note ---
Subjective Date: 03/24/18 Time: 09:19 Principal diagnosis: Acute on chronic PAD of RLE with limb threatening ischemia Interval history: 87 yo WF in bed in NAD. Complaint of headache but otherwise feeling better. RLE warm with palpable pulse. Left groin site looks good. Some bruising noted. Exam Vital signs and Labs for Last 24 Hours: Temp Pulse Resp BP Pulse Ox 98.3 F 83 16 100/48 L 89 L 03/24/18 08:00 03/24/18 08:00 03/24/18 08:00 03/24/18 08:00 03/24/18 08:00 Laboratory Results - last 24 hr 03/23/18 10:56: Activated Clotting Time 257 H* 03/23/18 12:59: Specimen Source l radial, O2 % 4lpm, ABG pH 7.36, ABG pCO2 35.2, ABG pO2 138.8 H, ABG HCO3 19.2 L, ABG Total CO2 20.3 L, ABG O2 Saturation 99, ABG Base Excess -6.3 L, Ramon Test acceptable I & O for Last 24 hours: Intake & Output 03/21/18 03/22/18 03/23/18 03/24/18 11:59 11:59 11:59 11:59 Intake Total 260 / 260 1933 / 1933 Output Total 151 / 151 Balance 260 / 260 1782 / 1782 Weight 139 lb 5.984 oz - *Routine Respiratory Exam Present: CTA bilaterally. Absent: accessory muscle use, rales, rhonchi, wheezes - *Routine Cardiovascular Exam Present: RRR. Absent: murmur, gallop, rubs - *Routine Extremities Exam Present: pulses intact. Absent: cyanosis, edema, calf tenderness Progress Note: A&P (1) Fever Status: Acute Current Visit: Yes (2) Arterial occlusion, lower extremity Status: Acute Current Visit: Yes (3) Chest pain Status: Acute Current Visit: Yes (4) Renal insufficiency Status: Acute Current Visit: Yes (5) Aortic regurgitation Status: Acute Current Visit: Yes (6) Mitral regurgitation Status: Acute Current Visit: Yes (7) Cardiomyopathy Status: Acute Current Visit: Yes Assessment and Plan for All Diagnoses:: Continue ASA and plavix for 30 days then OK to stop plavix. Hospice being considered. No further cardiac workup.
--- NOTE | 2018-03-24 10:13 | Pharmacy Consult Notes ---
[facility] Pharmacy VTE Monitoring - Patient Demographics Admission date: 03/23/18 Report Date: 03/24/18 Time: 10:13 Allergies/Adverse Reactions: Patient Allergies Tetanus Vaccines and Toxoid Allergy (Mild, Verified 03/22/18 23:57) Rash cephalexin [From KEFLEX] Allergy (Unknown, Verified 03/22/18 23:57) NA-NAUSEA/VOMITING ciprofloxacin [From CIPRO] Allergy (Unknown, Verified 03/22/18 23:57) NA-NAUSEA/VOMITING codeine [CODEINE] Allergy (Unknown, Verified 03/22/18 23:57) NA-NAUSEA/VOMITING fexofenadine [From TYLER] Allergy (Unknown, Verified 03/22/18 23:57) NA-NAUSEA/VOMITING morphine [MORPHINE] Allergy (Unknown, Verified 03/22/18 23:57) CONFUSION Penicillins [PENICILLINS] Allergy (Unknown, Verified 03/22/18 23:57) I-HIVES promethazine [From PHENERGAN] Allergy (Unknown, Verified 03/22/18 23:57) Sulfa (Sulfonamide Antibiotics) [SULFA (SULFONAMIDE ANTIBIOTICS)] Allergy (Unknown, Verified 03/22/18 23:57) NA-NAUSEA/VOMITING Height: 1.6 m Weight: 63.219 kg Patient Problems: Current Active Problems Arterial occlusion, lower extremity (Acute) Renal insufficiency (Acute) Chest pain (Acute) Fever (Acute) Aortic regurgitation (Acute) Mitral regurgitation (Acute) Cardiomyopathy (Acute) Cardiac pacemaker in situ (Acute) - VTE Risk Labs: VTE Related Lab Results Hgb 12.5 g/dL (12.2-16.2) 03/23/18 05:41 Hct 39.3 % (37.0-47.0) 03/23/18 05:41 Plt Count 234 K/mm3 (142-424) D 03/23/18 05:41 PT 10.2 seconds (9.4-11.8) 03/23/18 00:54 INR 0.99 (0.9-1.1) 03/23/18 00:54 APTT 120.3 seconds (23.6-34.0) H* 03/23/18 07:57 BUN 29 mg/dL (7-18) H 03/23/18 05:41 Creatinine 0.96 mg/dL (0.55-1.02) 03/23/18 05:41 Estimated Creat Clear 38 mL/min (0-300) 03/23/18 05:41 VTE Score: 7 VTE Risk Level: Moderate Risk - Prophylaxis VTE Prophylaxis Ordered?: Yes Types of VTE Prophylaxis: TEDS Knee High Location of Applied Device: Bilateral Lower Extremeties
[2018-03-25 06:00] LABS: Basophils % 0.1 % (0.1-2.0); Eosinophils % 0.1 % (0.1-12.0); Hematocrit 30.8 % (37.0-47.0); Hemoglobin 9.8 g/dL (12.2-16.2); Lymphocytes # 1.4 K/mm3 (0.7-4.5); Lymphocytes % 5.7 K/mm3 (10-50); Mean Corpuscular Hemoglobin 31.7 pg (27.0-31.2); Mean Corpuscular Volume 99.2 fl (81-99); Mean Platelet Volume 7.9 fl (7.4-10.4); Monocytes # 2.2 K/mm3 (0.1-1.0); Monocytes % 9.1 % (1.7-9.3); Neutrophils # 20.4 K/mm3 (1.8-7.8); Neutrophils % 85.1 % (37.0-80.0); Platelet Count 241 K/mm3 (142-424); Red Cell Distribution Width 15.5 % (11.5-17.5)
[2018-03-25 06:45] LABS: Albumin/Globulin Ratio 0.5 (1.1-1.8); Anion Gap 12.2 mEq/L (5-15); Bilirubin,Total 0.9 mg/dL (0.2-1.0); Calcium 8.1 mg/dL (8.5-10.1); Globulin 4.1 gm/dl (1.3-3.2); Potassium 4.2 mmoL/L (3.5-5.1); Total Protein,Serum 6.1 gm/dL (6.4-8.2)
--- NOTE | 2018-03-25 07:32 | Discharge Summary ---
General - General Admission date:: 03/23/18 Discharge date: 03/25/18 HPI HPI: 87-year-old white female with recently complex medical history including urinary tract infection with bacteremia, with significant comorbidities requiring transfer to long-term care facility for ongoing therapy and nursing care. Had a readmission 2 weeks ago because of mental status changes that was again because of an repeat urinary tract infection, this time without bacteremia, who yesterday evening at the [facility] began to complain of chest pain with radiation into the left arm. She was given nitroglycerin which failed to treat her symptoms adequately and she was transferred to the emergency department. In the emergency department here she was noted to have a low-grade fever. Also noted to have significant evidence of vascular disease in the right leg with evidence of arterial insufficiency. Admitted to hospital for further diagnostic testing and vascular/cardiology consultation. This morning she complains of pain in her right leg. Denies further chest pain. Hospital Course Hospital Course: Patient was admitted to hospital, serial troponins were done because of chest pain which was negative. Her right leg was found to be significantly compromised from an arterial vascular perspective and cardiology was consulted for vascular intervention purposes and successful stenting of the right leg was accomplished with excellent return of perfusion and warmth. Interestingly she had been able to be taken off her Percocet at [facility] because of a lack of pain, after the leg issue her pain did return and she was treated with intravenous Dilaudid with good results. Of note, her family, specifically her daughter was extremely emotionally upset about her being weaned off Percocet and maintained that her mother had had some withdrawal symptoms. I reviewed nursing notes and documentation from [facility] which did not support this assertion. (Patient had been living with daughter at home and there had been some family dynamic issues-certainly this could have a role in narcotic issues for a variety of reasons.) Although patient's leg improved, overall her condition decline during her hospital stay. She has significant cardiomyopathy, significant issues with coronary function and required oxygen. Patient has been a long-term maintainer of her DNR status and we brought up hospice care with her and the family. They met with hospice and agreed to enroll her in hospice care because of her cardiomyopathy, peripheral arterial disease and overall decline. Plan will be today to transfer back to hospice care at the [facility]. We will put her back on Percocet for pain with breakthrough Roxanol and Ativan. Other medication for vascular issues will be as noted. Objective Vital signs: Temp Pulse Resp BP Pulse Ox 98.0 F 83 16 123/75 97 03/25/18 04:00 03/25/18 04:00 03/25/18 04:00 03/25/18 04:00 03/25/18 06:37 Narrative: Patient is pleasant and alert, oriented x2. Appears cachectic, appears frail and is extremely weak. Heart rate regular with flow murmur and summation gallop. Lungs have rhonchi and poor air movement bilaterally even on oxygen. Abdomen is cachectic soft. Right leg is warm and well-perfused, does have tenderness with movement and pain with movement of the calf but this has improved. Overall she does have pain with movement of her hips. Her pulses are nonpalpable but perfusion is certainly improved. Arterial ischemic ulcerations in the toes are unchanged. Results Labs on day of discharge: Labs from last 24 hours 03/25/18 03/25/18 03/24/18 05:25 05:25 13:25 WBC 24.0 H* D RBC 3.10 L Hgb 9.8 L Hct 30.8 L MCV 99.2 H MCH 31.7 H MCHC 32.0 RDW 15.5 Plt Count 241 MPV 7.9 Neut % (Auto) 85.1 H Lymph % (Auto) 5.7 L [place] % (Auto) 9.1 Eos % (Auto) 0.1 Baso % (Auto) 0.1 Neut # (Auto) 20.4 H Lymph # (Auto) 1.4 [place] # (Auto) 2.2 H Eos # (Auto) 0.0 Baso # (Auto) 0.0 Sodium 130 L Potassium 4.2 Chloride 97 L Carbon Dioxide 25 Anion Gap 12.2 BUN 35 H Creatinine 1.04 H Estimated Creat Clear 37 Estimated GFR 50 L Est GFR ( Amer) 60 Glucose 68 L Calcium 8.1 L Total Bilirubin 0.9 AST 111 H ALT 71 D Alkaline Phosphatase 131 H Total Protein 6.1 L Albumin 2.0 L Globulin 4.1 H Albumin/Globulin Ratio 0.5 L Stl Aeromonas (PCR) Not detected Stl C. cayetanensis PCR Not detected Stool Rotavirus (PCR) Not detected Stl Adenov F 40/41 PCR Not detected Stool Astrovirus (PCR) Not detected Stool Campylobacter PCR Not detected Stl C.difficile Tox PCR Not detected Stool Cryptosporidium PCR Not detected Stl E.coli Shiga Tox PCR Not detected Stool E coli O157 PCR Not detected Stl Enterotoxigenic E PCR Not detected Stool EPEC (PCR) Not detected Stool EAEC (PCR) Not detected Stl E. histolytica PCR Not detected Stool Giardia Lamblia PCR Not detected Stool Salmonella PCR Not detected Stool Sapovirus (PCR) Not detected Stl P. shigelloides PCR Not detected Stl Shigella/EIEC PCR Not detected St Y.enterocolitica PCR Not detected Stool Vibrio (PCR) Not detected Stl Vibrio cholerae PCR Not detected Stl Norovirus GI/GII PCR Not detected Preliminary micro results at discharge 03/23/18 00:54 Blood Culture - Preliminary Blood NO GROWTH AFTER 48 HOURS 03/23/18 00:54 Blood Culture - Preliminary Blood NO GROWTH AFTER 48 HOURS 03/23/18 00:15 Urine Culture - Preliminary Urine,Clean Catch NO GROWTH AFTER 24 HOURS DS: Diagnosis - Discharge Diagnosis (1) Fever Status: Resolved Problem details: Patient with history of Klebsiella UTI, however urine and blood cultures negative in hospital, fever resolved (2) Arterial occlusion, lower extremity Status: Resolved Problem details: Current problem resolved. Significant risk factors for ongoing atherosclerosis of extremities (3) Chest pain Status: Resolved (4) Renal insufficiency Status: Chronic (5) Aortic regurgitation Status: Chronic (6) Mitral regurgitation Status: Chronic (7) Cardiomyopathy Status: Chronic Problem details: End-stage disease. (8) Leukocytosis Status: Acute (9) Anemia, chronic disease Status: Acute (10) History of Clostridium difficile colitis Status: Acute Problem details: Patient with no diarrhea. Currently not contagious. Discharge Plan - Patient Discharge Instructions ACTIVITY: Up with assistance DIET: continue same diet Patient Instructions: DI for Cardiac Catheterization, DI for Surgical Site Infection - Follow up Plan Disposition: Hospice - Medical Facility Home Medications: Home Medications Medication Instructions Recorded Confirmed Type escitalopram 20 mg tablet 20 mg PO DAILY tab 06/22/17 03/23/18 History nitroglycerin 0.4 mg sublingual 0.4 mg SUBLINGUAL Q5MINP PRN 06/22/17 03/23/18 History tablet sucralfate 1 gram tablet 1 g PO QID 06/22/17 03/23/18 History Bisoprolol Fumarate [Bisoprolol 5 mg PO DAILY 02/21/18 03/23/18 History 5mg Tablet] Diclofenac Sodium [Diclofenac Sod 1 applicatio TP TIDP PRN 02/21/18 03/23/18 History 100gm Topical Gel] Lisinopril [Lisinopril 5mg Tablet] 5 mg PO DAILY 02/21/18 03/23/18 History Polyethylene Glycol 3350 [Miralax 17 gm PO HS 02/21/18 03/23/18 History 17gm Packet] Acetaminophen 500 mg PO Q4HP PRN 03/09/18 03/23/18 History Albuterol Sulfate [Proair Hfa 2 puffs IH Q4HP PRN 03/09/18 03/23/18 History 90mcg/puff Inh] Calcium Carbonate [Tums 500mg 2 tab PO Q2HP PRN 03/09/18 03/23/18 History chewtab] Gabapentin [Gabapentin 100mg Cap] 100 mg PO BID 03/22/18 03/23/18 History Loratadine [Claritin] 10 mg PO DAILY 03/22/18 03/23/18 History Pantoprazole Sodium [Pantoprazole 40 mg PO DAILY 03/22/18 03/23/18 History 20mg Tab] Furosemide [Furosemide 40MG tAB] 40 mg PO DAILY 03/23/18 03/23/18 History Prescriptions/Medication Reconciliation: New Oxycodone HCl/Acetaminophen [Percocet 7.5/325mg tablet] 1 each PO Q6HP PRN #120 tab PRN Reason: Breakthru Moderate Pain Continue nitroglycerin 0.4 mg sublingual tablet 0.4 mg SUBLINGUAL Q5MINP PRN PRN Reason: Chest Pain sucralfate 1 gram tablet 1 g PO QID escitalopram 20 mg tablet 20 mg PO DAILY tab Bisoprolol Fumarate [Bisoprolol 5mg Tablet] 5 mg PO DAILY Albuterol Sulfate [Proair Hfa 90mcg/puff Inh] 2 puffs IH Q4HP PRN PRN Reason: Shortness Of Breath Or Wheezing Pantoprazole Sodium [Pantoprazole 20mg Tab] 40 mg PO DAILY Gabapentin [Gabapentin 100mg Cap] 100 mg PO BID LORazepam [Ativan] 1 mg PO HS #30 tab Acetaminophen 500 mg PO Q4HP PRN PRN Reason: PAIN OR FEVER Changed LORazepam [Ativan] 0.5 mg PO TIDP PRN #60 tab PRN Reason: Agitation Discontinued Lisinopril [Lisinopril 5mg Tablet] 5 mg PO DAILY Diclofenac Sodium [Diclofenac Sod 100gm Topical Gel] 1 applicatio TP TIDP PRN PRN Reason: PAIN/INFLAMMATION Calcium Carbonate [Tums 500mg chewtab] 2 tab PO Q2HP PRN PRN Reason: Heartburn Potassium Chloride [Micro-K 10mEq cap] 20 meq PO BID #60 capsule.er Polyethylene Glycol 3350 [Miralax 17gm Packet] 17 gm PO HS Loratadine [Claritin] 10 mg PO DAILY Furosemide [Furosemide 40MG tAB] 40 mg PO DAILY
[2018-03-25 07:57] LABS: Lymphocytes % 5 % (10-50); Monocytes % 10 % (2-9); Neutrophils % 84 % (42-76); Total Cells Counted 100
--- NOTE | 2018-03-25 09:18 | Progress Note ---
Subjective Date: 03/25/18 Time: 09:14 Principal diagnosis: Acute on chronic PAD of RLE with limb threatening ischemia Interval history: 87-year-old white female in no acute distress. She does relate some discomfort in the right foot which is likely related to increase in blood flow after further intervention. Right foot is warm with appreciable pulse. Exam Vital signs and Labs for Last 24 Hours: Temp Pulse Resp BP Pulse Ox 98.8 F 92 H 19 114/40 L 97 03/25/18 08:00 03/25/18 08:00 03/25/18 08:00 03/25/18 08:00 03/25/18 08:00 Laboratory Results - last 24 hr 03/24/18 13:25: Stl Aeromonas (PCR) Not detected, Stl C. cayetanensis PCR Not detected, Stool Rotavirus (PCR) Not detected, Stl Adenov F 40/41 PCR Not detected, Stool Astrovirus (PCR) Not detected, Stool Campylobacter PCR Not detected, Stl C.difficile Tox PCR Not detected, Stool Cryptosporidium PCR Not detected, Stl E.coli Shiga Tox PCR Not detected, Stool E coli O157 PCR Not detected, Stl Enterotoxigenic E PCR Not detected, Stool EPEC (PCR) Not detected, Stool EAEC (PCR) Not detected, Stl E. histolytica PCR Not detected, Stool Giardia Lamblia PCR Not detected, Stool Salmonella PCR Not detected, Stool Sapovirus (PCR) Not detected, Stl P. shigelloides PCR Not detected, Stl Shigella/EIEC PCR Not detected, St Y.enterocolitica PCR Not detected, Stool Vibrio (PCR) Not detected, Stl Vibrio cholerae PCR Not detected, Stl Norovirus GI/GII PCR Not detected 03/25/18 05:25: WBC 24.0 H* D, RBC 3.10 L, Hgb 9.8 L, Hct 30.8 L, MCV 99.2 H, MCH 31.7 H, MCHC 32.0, RDW 15.5, Plt Count 241, MPV 7.9, Neut % (Auto) 85.1 H, Lymph % (Auto) 5.7 L, [place] % (Auto) 9.1, Eos % (Auto) 0.1, Baso % (Auto) 0.1, Neut # (Auto) 20.4 H, Lymph # (Auto) 1.4, [place] # (Auto) 2.2 H, Eos # (Auto) 0.0, Baso # (Auto) 0.0, Total Counted 100, Neutrophils % (Manual) 84 H, Band Neutrophils % 1.0, Lymphocytes % (Manual) 5 L, Monocytes % (Manual) 10 H, Platelet Estimate Normal, Acanthocytes (Spur) 1+ 03/25/18 05:25: Sodium 130 L, Potassium 4.2, Chloride 97 L, Carbon Dioxide 25, Anion Gap 12.2, BUN 35 H, Creatinine 1.04 H, Estimated Creat Clear 37, Estimated GFR 50 L, Est GFR ( Amer) 60, Glucose 68 L, Calcium 8.1 L, Total Bilirubin 0.9, AST 111 H, ALT 71 D, Alkaline Phosphatase 131 H, Total Protein 6.1 L, Albumin 2.0 L, Globulin 4.1 H, Albumin/Globulin Ratio 0.5 L I & O for Last 24 hours: Intake & Output 03/22/18 03/23/18 03/24/18 03/25/18 11:59 11:59 11:59 11:59 Intake Total 260 / 260 1933 / 1933 933 / 933 Output Total 151 / 151 551 / 551 Balance 260 / 260 1782 / 1782 382 / 382 Weight 139 lb 5.984 oz 139 lb 6 oz 139 lb 5.984 oz Microbiology Reports for the Last 24 Hours: Microbiology 03/23/18 00:54 Blood Blood Culture - Preliminary NO GROWTH AFTER 48 HOURS 03/23/18 00:54 Blood Blood Culture - Preliminary NO GROWTH AFTER 48 HOURS 03/23/18 00:15 Urine,Clean Catch Urine Culture - Preliminary NO GROWTH AFTER 24 HOURS - *Routine Respiratory Exam Present: CTA bilaterally. Absent: accessory muscle use, rales, rhonchi, wheezes - *Routine Cardiovascular Exam Present: RRR. Absent: murmur, gallop, rubs - *Routine Extremities Exam Absent: cyanosis, edema, calf tenderness Progress Note: A&P (1) Fever Problem details: Patient with history of Klebsiella UTI, however urine and blood cultures negative in hospital, fever resolved Status: Resolved Current Visit: Yes (2) Arterial occlusion, lower extremity Problem details: Current problem resolved. Significant risk factors for ongoing atherosclerosis of extremities Status: Resolved Current Visit: Yes (3) Chest pain Status: Resolved Current Visit: Yes (4) Renal insufficiency Status: Chronic Current Visit: Yes (5) Aortic regurgitation Status: Chronic Current Visit: Yes (6) Mitral regurgitation Status: Chronic Current Visit: Yes (7) Cardiomyopathy Problem details: End-stage disease. Status: Chronic Current Visit: Yes (8) Leukocytosis Status: Acute Current Visit: Yes (9) Anemia, chronic disease Status: Acute Current Visit: Yes (10) History of Clostridium difficile colitis Problem details: Patient with no diarrhea. Currently not contagious. Status: Acute Current Visit: Yes Assessment and Plan for All Diagnoses:: Continue aspirin and Plavix for 30 days. After that patient can be maintained on aspirin only. Patient is going back to assisted under hospice today.
== END 2018-03-25 13:35 | disposition hospice, inpatient (51) ==
LOC: 2ND 23:43 → ER 23:43 → 2ND 03-23 02:22
PROVIDERS: ADMIT Internal Medicine Adolescent Medicine; ATTEND Internal Medicine Adolescent Medicine